=== PATIENT | female | born 1985 | race American Indian/Alaskan Native ===

== ENCOUNTER 2019-11-09 19:40 | Inpatient (IN) | payer MEDICAID ==
--- NOTE | 2019-11-09 20:25 | Event Note ---
ED Screening Note Date of service: 11/09/19 Time: 20:23 ED Screening Note: Pt complains of bilateral lower chest pain and vomiting x today ESRD on dialysis-M/W/F-states compliant does make urine pain radiates to left flank-+CVA tenderness on exam denies dysuria or hematuria or SOB This initial assessment/diagnostic orders/clinical plan/treatment(s) is/are subject to change based on patients health status, clinical progression and re- assessment by fellow clinical providers in the ED. Further treatment and workup at subsequent clinical providers discretion. Patient/guardian urged not to elope from the ED as their condition may be serious if not clinically assessed and managed. Initial orders include: labs CXR
[2019-11-09 21:12] LABS: Basophils # (Auto) 0.1 K/mm3 (0.0-0.1); Eosinophils # (Auto) 0.2 K/mm3 (0.0-0.4); Eosinophils % (Auto) 2.7 % (0.0-4.3); Hematocrit 38.1 % (30.3-42.9); Hemoglobin 12.4 gm/dl (10.1-14.3); Mean Corpuscular HGB Conc 32 % (30-34); Mean Corpuscular Volume 94 fl (79-97); Monocytes # (Auto) 0.6 K/mm3 (0.0-0.8); Monocytes % (Auto) 8.4 % (0.0-7.3); Platelet Count 343 K/mm3 (140-440); Red Blood Count 4.04 M/mm3 (3.65-5.03); Red Cell Distribution Width 19.7 % (13.2-15.2)
[2019-11-09 21:28] LABS: Albumin 5.3 g/dL (3.9-5); Calcium 9.9 mg/dL (8.4-10.2)
--- NOTE | 2019-11-09 21:33 | Emergency Department Report ---
ED Chest Pain HPI - General Chief Complaint: Chest Pain Stated Complaint: BODY PAIN Time Seen by Provider: 11/09/19 20:19 Source: EMS Mode of arrival: Ambulatory Limitations: No Limitations - History of Present Illness Initial Comments: Patient is a 34-year-old female that presents emergency room for chest and back pain. Patient states her chest pain is a 10 out of 10. Pain states her chest pain is better with rest and worse with exertion. Patient states that her blood pressure is high because she has missed some blood pressure medication. Patient states she is on dialysis and her last dialysis was yesterday. Patient states that her chest pains been going on for 1 day. Patient also complains of back pain. Patient states she is having left flank pain. Patient states it is worse with movement and better with rest. Patient states her back pain is also worse with palpation. Patient states her flank pain is a 10 out of 10. Patient is describes the pain as a stabbing. Patient states she does create urine. Patient denies fever and chills. Patient denies shortness of breath. MD Complaint: chest pain -: Sudden Onset: during rest Pain Location: left chest Severity: severe Severity scale (0 -10): 10 Consistency: constant Improves With: rest Worsens With: exertion re: denies: nausea, vomting, diaphoresis, dyspnea, sense of impending doom Other Symptoms: denies: cough, fever, syncope, rash, acid taste in mouth, leg swelling, palpitations, burping Treatments Prior to Arrival: aspirin Aspirin use within the Past 7 Days: (1) Yes - Related Data On Oral Contraceptives: No Home Medications Medication Instructions Recorded Confirmed Last Taken Clonidine HCl [Catapres] 0.3 mg PO Q12H 09/19/18 09/19/18 09/19/18 NIFEdipine [Nifedipine ER] 30 mg PO QDAY 09/19/18 09/19/18 09/19/18 hydrALAZINE [Apresoline] 75 mg PO Q8HR 09/19/18 09/19/18 09/19/18 Previous Rx's Medication Instructions Recorded Last Taken Type Isosorbide Dinitrate [Isordil 40 mg PO Q8H #90 tablet 09/23/18 Unknown Rx Titradose] NIFEdipine [Adalat cc] 30 mg PO Q8H #90 tablet.er 09/23/18 Unknown Rx NIFEdipine [Nifedipine ER] 90 mg PO QDAY #30 tablet.er 09/23/18 Unknown Rx Oxycodone HCl/Acetaminophen 1 each PO Q6HR PRN #20 tablet 09/23/18 Unknown Rx [Percocet 7.5/325 mg] carvediloL [Coreg] 25 mg PO Q12H #60 tablet 09/23/18 Unknown Rx cloNIDine [Catapres] 0.3 mg PO Q8HR #90 tablet 09/23/18 Unknown Rx lisinopriL [Zestril TAB] 40 mg PO QDAY #30 tablet 09/23/18 Unknown Rx Allergies Allergy/AdvReac Type Severity Reaction Status Date / Time tramadol AdvReac Unknown Verified 09/19/18 08:46 Heart Score - HEART Score History: Moderately suspicious EKG: Non-specific Age: < 45 Risk factors: > 3 risk factors or hx of atherosclerotic disease Troponin: 1-3x normal limit HEART Score: 5 ED Review of Systems ROS: Stated complaint: BODY PAIN Other details as noted in HPI Constitutional: denies: chills, fever Eyes: denies: eye pain, eye discharge, vision change ENT: denies: ear pain, throat pain Respiratory: denies: cough, shortness of breath, wheezing Cardiovascular: chest pain. denies: palpitations Endocrine: no symptoms reported Gastrointestinal: abdominal pain. denies: nausea, diarrhea Genitourinary: denies: urgency, dysuria, discharge Musculoskeletal: denies: back pain, joint swelling, arthralgia Skin: denies: rash, lesions Neurological: denies: headache, weakness, paresthesias Psychiatric: denies: anxiety, depression Hematological/Lymphatic: denies: easy bleeding, easy bruising ED Past Medical Hx - Past Medical History Previous Medical History?: Yes Hx Hypertension: Yes Hx Congestive Heart Failure: Yes Hx Renal Disease: Yes (on hd) Additional medical history: Dialysis - Surgical History Past Surgical History?: Yes Additional Surgical History: hd shunt - Social History Smoking Status: Current Every Day Smoker Substance Use Type: None - Medications Home Medications: Home Medications Medication Instructions Recorded Confirmed Last Taken Type Clonidine HCl [Catapres] 0.3 mg PO Q12H 09/19/18 09/19/18 09/19/18 History NIFEdipine [Nifedipine ER] 30 mg PO QDAY 09/19/18 09/19/18 09/19/18 History hydrALAZINE [Apresoline] 75 mg PO Q8HR 09/19/18 09/19/18 09/19/18 History Isosorbide Dinitrate [Isordil 40 mg PO Q8H #90 tablet 09/23/18 Unknown Rx Titradose] NIFEdipine [Adalat cc] 30 mg PO Q8H #90 tablet.er 09/23/18 Unknown Rx NIFEdipine [Nifedipine ER] 90 mg PO QDAY #30 tablet.er 09/23/18 Unknown Rx Oxycodone HCl/Acetaminophen 1 each PO Q6HR PRN #20 tablet 09/23/18 Unknown Rx [Percocet 7.5/325 mg] carvediloL [Coreg] 25 mg PO Q12H #60 tablet 09/23/18 Unknown Rx cloNIDine [Catapres] 0.3 mg PO Q8HR #90 tablet 09/23/18 Unknown Rx lisinopriL [Zestril TAB] 40 mg PO QDAY #30 tablet 09/23/18 Unknown Rx ED Physical Exam - General Limitations: No Limitations General appearance: alert, in no apparent distress - Head Head exam: Present: atraumatic, normocephalic - Eye Eye exam: Present: normal appearance - ENT ENT exam: Present: mucous membranes moist - Neck Neck exam: Present: normal inspection - Respiratory Respiratory exam: Present: normal lung sounds bilaterally. Absent: respiratory distress - Cardiovascular Cardiovascular Exam: Present: regular rate, normal rhythm. Absent: systolic murmur, diastolic murmur, rubs, gallop - GI/Abdominal GI/Abdominal exam: Present: soft, tenderness (Left flank tenderness.), normal bowel sounds - Extremities Exam Extremities exam: Present: normal inspection - Back Exam Back exam: Present: normal inspection - Neurological Exam Neurological exam: Present: alert, oriented X3 - Psychiatric Psychiatric exam: Present: normal affect, normal mood - Skin Skin exam: Present: warm, dry, intact, normal color. Absent: rash ED Course Vital Signs 11/09/19 11/09/19 11/09/19 20:01 20:20 21:40 Temperature 98.2 F 98.2 F Pulse Rate 87 87 Respiratory 18 20 22 Rate Blood Pressure 214/153 Blood Pressure 236/158 [Right] O2 Sat by Pulse 100 98 Oximetry 11/09/19 11/10/19 11/10/19 23:36 00:00 01:03 Temperature Pulse Rate Respiratory Rate Blood Pressure 225/153 195/120 206/144 Blood Pressure [Right] O2 Sat by Pulse 54 L 99 95 Oximetry 11/10/19 11/10/19 11/10/19 01:30 02:00 02:30 Temperature Pulse Rate Respiratory Rate Blood Pressure 208/151 185/109 184/112 Blood Pressure [Right] O2 Sat by Pulse 98 98 98 Oximetry - Reevaluation(s) Reevaluation #1: Initial evaluation done. Patient found to be hypotensive. Patient will be c onnected to bus driver/monitor and blood pressure recheck. Patient will be given pain medications. 11/09/19 20:20 Reevaluation #2: I discussed all results with patient. I discussed plan of care with patient. Patient agrees with plan of care and admission. Patient to be admitted to the hospitalist service. Patient complaining of pain. Patient will be given more pain medication. Patient's blood pressure also still elevated and patient was given clonidine. 11/10/19 02:41 - Consultations Consultation #1: Hospitalist consulted for admission. Hospitalist to admit patient. Bridge orders placed. 11/10/19 02:41 TANVI score - Tanvi Score Age > 65: (0) No Aspirin use within the Past 7 Days: (1) Yes 3 or more CAD Risk Factors: (1) Yes 2 or more Angina events in past 24 hrs: (1) Yes Known CAD with more than 50% Stenosis: (0) No Elevated Cardiac Markers: (0) No ST Deviation Greater than 0.5mm: (0) No TANVI Score: 3 ED Medical Decision Making - Lab Data Result diagrams: 11/09/19 20:27 11/09/19 20:27 - EKG Data -: EKG Interpreted by [facility] EKG shows normal: sinus rhythm, axis, intervals, QRS complexes, ST-T waves Rate: normal - EKG Data Interpretation: [facility] - Radiology Data Radiology results: report reviewed CHEST 2 VIEWS INDICATION / CLINICAL INFORMATION: Chest Pain. COMPARISON: 09/19/2018 FINDINGS: SUPPORT DEVICES: None. HEART / MEDIASTINUM: No significant abnormality. LUNGS / PLEURA: No significant pulmonary or pleural abnormality. .No pneumothorax. ADDITIONAL FINDINGS: Nipple shadows are noted bilaterally IMPRESSION: 1. No acute findings. CT abdomen pelvis wo con INDICATION: FLANK PAIN. TECHNIQUE: All CT scans at this location are performed using the following dose modulation technique: Automated exposure control. Helical slices were obtained through the abdomen and pelvis. No contrast is administered. COMPARISON: None available. FINDINGS: Abdomen: There is focal airspace opacity in the right lung base likely representing atelectasis. The heart is mildly enlarged. The liver, spleen, pancreas, adrenal glands, and small bowel show no acute abnormalities. The kidneys are small. No adenopathy is seen. The aorta is normal in diameter. Atherosclerotic calcifications are noted in the aorta and common iliac arteries. There is ectasia of the common iliac arteries. Moderate to large amount of stool is noted in the colon raising possibility of constipation. The appendix is unremarkable. There is no obstruction, inflammation, or free air. Pelvis: Vascular calcifications are noted. There is no obstruction or inflammation. There are no abnormal collections. On review of bone windows, no acute osseous abnormalities are seen. IMPRESSION: 1. There is no obstruction, inflammation, or free air. There are no abnormal fluid collections. The appendix is unremarkable. No renal or ureteral calculi are identified. There is no hydronephrosis. Kidneys are small. There is possible constipation. - Medical Decision Making Patient is a 34-year-old female that presents emergency room complaints of left flank pain and chest pain. Patient's had an abdominal CT for her CVA tenderness and flank pain. Abdominal CT shows no acute findings. Patient also complains of chest pain. Patient has a history of end-stage renal disease and her initial troponin was elevated. Patient second troponin increased even more and patient required admission. Patient will be admitted to the hospital service for further evaluation treatment. The rest of the patient's labs are essentially unremarkable. Patient required multiple medications for her blood pressure and pain. - Differential Diagnosis Flank pain, abdominal pain, chest pain, ACS, ESRD Critical Care Time: Yes Critical care time in (mins) excluding proc time.: 35 Critical care attestation.: If time is entered above; I have spent that time in minutes in the direct care of this critically ill patient, excluding procedure time. Critical Care Time: 35 minutes ED Disposition Clinical Impression: Malignant hypertension, Flank pain, acute, CKD (chronic kidney disease) stage V requiring chronic dialysis, Elevated troponin I level Chest pain Qualifiers: Chest pain type: unspecified Qualified Code(s): R07.9 - Chest pain, unspecified Disposition: OP ADMIT IP TO THIS HOSP Is pt being admited?: Yes Does the pt Need Aspirin: No Condition: Critical Referrals: PRIMARY CARE, [Primary Care Provider] - 3-5 Days Time of Disposition: 02:44
[2019-11-09] MEDS ORDERED: HYDROmorphone 1 MG/1 ML INJ ONE (23:13)
[2019-11-09] MEDS ORDERED: HYDROmorphone 1 MG/1 ML INJ IV ONE (23:20)
[2019-11-09 23:42] LABS: Chol/HDL Ratio 2.32 %
[2019-11-09] MEDS ORDERED: diphenhydrAMINE 50 MG/ML VIAL IV ONE (23:53)
[2019-11-10] MEDS ORDERED: hydrALAZINE 20 MG/1 ML INJ ONE (01:25)
[2019-11-10] MEDS ORDERED: hydrALAZINE 20 MG/1 ML INJ IV ONE (01:35)
--- NOTE | 2019-11-10 01:39 | XRay Report ---
CHEST 2 VIEWS INDICATION / CLINICAL INFORMATION: Chest Pain. COMPARISON: 09/19/2018 FINDINGS: SUPPORT DEVICES: None. HEART / MEDIASTINUM: No significant abnormality. LUNGS / PLEURA: No significant pulmonary or pleural abnormality. .No pneumothorax. ADDITIONAL FINDINGS: Nipple shadows are noted bilaterally IMPRESSION: 1. No acute findings. Signer Name: Edwin Fermin MD Signed: 11/10/2019 1:34 AM Workstation Name: [id number]
--- NOTE | 2019-11-10 02:08 | Cat Scan Report ---
CT abdomen pelvis wo con INDICATION: FLANK PAIN. TECHNIQUE: All CT scans at this location are performed using the following dose modulation technique: Automated exposure control. Helical slices were obtained through the abdomen and pelvis. No contrast is adminis tered. COMPARISON: None available. FINDINGS: Abdomen: There is focal airspace opacity in the right lung base likely representing atelectasis. The heart is mildly enlarged. The liver, spleen, pancreas, adrenal glands, and small bowel show no acute abnormalities. The kidneys are small. No adenopathy is seen. The aorta is normal in diameter. Atherosclerotic calcifications ar e noted in the aorta and common iliac arteries. There is ectasia of the common iliac arteries. Moderate to large amount of stool is noted in the colon raising possibility of constipation. The appe ndix is unremarkable. There is no obstruction, inflammation, or free air. Pelvis: Vascular calcifications are noted. There is no obstruction or inflammation. There are no abno rmal collections. On review of bone windows, no acute osseous abnormalities are seen. IMPRESSION: 1. There is no obstruction, inflammation, or free air. There are no abnormal fluid collections. The a ppendix is unremarkable. No renal or ureteral calculi are identified. There is no hydronephrosis. Kidneys are small. There is possible constipation. Signer Name: Edwin Fermin MD Signed: 11/10/2019 2:04 AM Workstation Name: [id number]
[2019-11-10] MEDS ORDERED: cloNIDine 0.2 MG TAB PO ONE (02:46)
[2019-11-10] MEDS ORDERED: HYDROmorphone 1 MG/1 ML INJ IV ONE (02:54)
[2019-11-10] MEDS ORDERED: NITROGLYCERIN 0.4 MG TAB SUBL SL PRN (03:37)
[2019-11-10] MEDS ORDERED: ACETAMINOPHEN 325 MG TAB PO PRN (03:38)
[2019-11-10] MEDS ORDERED: hydrALAZINE 20 MG/1 ML INJ IV PRN (03:39)
[2019-11-10 04:41] LABS: Creatine Kinase MB 2.1 ng/mL (0.0-4.0)
[2019-11-10] MEDS: HEPARIN 5,000 UNIT/1 ML VIAL SUB-Q SCH ×3 (05:54→21:07)
--- NOTE | 2019-11-10 07:09 | History and Physical Report ---
CHIEF COMPLAINT: Chest pain. OTHER COMPLAINT: Include bilateral flank pain. HISTORY OF PRESENTING ILLNESS: The patient is a 34-year-old female who says she has been having chest pain going on for a few days. Also, the patient complained about pain in both flank areas, radiating to the back. Pain is worse with exertion and better with rest. There is no history of shortness of breath, no history of nausea and vomiting. Also, the patient denied history of fever or chills or cough, and described the chest pain as sharp pain. The patient is on dialysis for end-stage renal disease and had last dialysis on 11/08/2019. PAST MEDICAL HISTORY: Pertinent for hypertension, congestive heart failure; end-stage renal disease, on dialysis. PAST SURGICAL HISTORY: Pertinent for dialysis shunt placement. FAMILY HISTORY: There is no family history of coronary artery disease. SOCIAL HISTORY: The patient smokes cigarettes; does not drink alcohol and does not use illicit drugs. MEDICATIONS: The patient is on clonidine 0.3 mg by mouth every 12 hours, nifedipine 30 mg by mouth daily, Apresoline 75 mg by mouth every 8 hours and isosorbide dinitrate 40 mg by mouth every 8 hours, Adalat 30 mg by mouth every 8 hours. The patient is also on Percocet 7.5 mg/325 one by mouth every 6 hours and Coreg 25 mg by mouth every 12 hours. The patient is on clonidine 0.3 mg by mouth every 8 hours and on lisinopril 40 mg by mouth daily. ALLERGIES: THE PATIENT IS ALLERGIC TO TRAMADOL. REVIEW OF SYSTEMS: CONSTITUTIONAL: There is no fever, no chills, no diaphoresis. HEENT: There is no headache or sore throat. CARDIOVASCULAR SYSTEM: Chest pain is present. No orthopnea. RESPIRATORY SYSTEM: There is no shortness of breath or cough. GASTROINTESTINAL SYSTEM: There is no nausea, no vomiting, no abdominal pain, diarrhea or constipation. NEUROLOGICAL SYSTEM: There is no numbness, no dizziness, no altered mental status. MUSCULOSKELETAL SYSTEM: There is pain in both lateral chest wall areas. There is no joint swelling. DERMATOLOGICAL SYSTEM: There is no skin rash or itching. GENITOURINARY SYSTEM: There is dysuria, but no hematuria or flank pain. Rest of system review is normal. PHYSICAL EXAMINATION: GENERAL: At the time of exam, the patient was found to be alert, oriented x3 and not in acute distress. VITAL SIGNS: At the initial time of presentation showed temperature of 98.2 degrees Fahrenheit, pulse of 87, respirations 18, blood pressure initially was 236/158, O2 sat of 100% on room air. The patient's blood pressure later came down with treatment to 184/112 and the patient's O2 sat was 100% on room air. HEENT: Showed pupils to be equal, round, reactive to light and accommodation. Extraocular muscles are intact. NECK: Supple with no JVD or carotid bruit. CARDIOVASCULAR SYSTEM: Showed normal first and second heart sounds with no gallops or murmurs. RESPIRATORY SYSTEM: Showed good air entry on both sides of the lungs with no abnormal breath sounds. GASTROINTESTINAL SYSTEM: Showed abdomen to be full, soft, nontender with no organomegaly or rigidity. NEUROLOGIC: Shows no focal deficit. MUSCULOSKELETAL SYSTEM: Showed no joint swelling or tenderness. DERMATOLOGICAL SYSTEM: Showed no skin rash. GENITOURINARY SYSTEM: Showing no costovertebral angle tenderness. PERTINENT LABORATORY DATA: The patient had CBC done that came back unremarkable. The patient's chemistry show elevated BUN of 36 with high creatinine of 8.1, with the patient's cardiac enzymes showing high troponin level of 0.037 initially. Also, the patient's total protein was high with a value of 9.3 and albumin level is high with a value of 5.3. IMAGING STUDIES: The patient had CT of the abdomen and pelvis without contrast done that showed there is no obstruction, inflammation or free air. There is no abnormal fluid collection with the appendix being unremarkable. Also, the patient had a chest x-ray done that shows no acute findings. DIAGNOSES: 1. Chest pain. 2. Hypertensive crisis. PLAN OF CARE: 1. The patient will be placed on telemetry, on chest pain observation pathway. 2. The patient will have cardiac enzymes checked q. 6 hours x 2 more levels, and we will involve troponin, total CK and CK-MB. 3. The patient will be on aspirin 325 mg by mouth daily. 4. The patient will be on nitro paste half-inch to the anterior chest wall q.i.d. and also will be on Nitrostat 0.4 mg sublingual q. 5 minutes. 5. The patient will be on IV morphine 2 mg every 3 hours as needed for pain, and will be on IV Zofran 4 mg every 8 hours as needed for nausea and vomiting. 6. The patient will be on Tylenol 650 mg by mouth every 4 hours as needed for fever and headache. 7. The patient will be on hydralazine 10 mg IV every 4 hours for blood pressure of 150/90 or greater. 8. The patient will have Cardiology consult with Dr. Munguia because of chest pain with elevated troponin level. 9. The patient will be on subcutaneous heparin 5000 units q. 12 hours for DVT prophylaxis. 10. The patient will be on oxygen by nasal cannula at the rate of 2 liters per minute. JOB# [id number] OCN/NTS
[2019-11-10] MEDS ORDERED: MORPHINE 2 MG/1 ML INJ ONE (08:06)
[2019-11-10] MEDS: MORPHINE 2 MG/1 ML INJ IV PRN ×4 (08:07→21:13)
[2019-11-10 08:32] LABS: Creatine Kinase MB 2.1 ng/mL (0.0-4.0)
--- NOTE | 2019-11-10 09:23 | Event Note ---
Date: 11/10/19 changed patient to inpatient status as she is requiring multiple doses of iv hydralazine to control bp and still not controlled
[2019-11-10] MEDS: NITROGLYCERIN 2% OINT 1 GM TP SCH ×5 (09:30→19:26)
[2019-11-10] MEDS: ASPIRIN 325 MG TAB PO SCH (09:35)
--- NOTE | 2019-11-10 11:01 | Consultation ---
History of Present Illness - Reason for Consult Consult date: 11/10/19 end stage renal disease - History of Present Illness This is a 34 year old female patient with pmh significant for HTN, CHF, and ESRD. She is currently on outpatient dialysis schedule of // at [facility] on [address] and has a left arm shunt for access. Patient is answering very few questions and states she just wants to sleep. History is being obtained primarily from ED notes. She presented to the ED on 11/09 for chest and back pain that improves with rest. Her last outpatient dialysis treatment was on 11/08. She is not compliant with her blood pressure medications and was found to be severely hypertensive in the ED. 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 She denies shortness of breath, nausea, vomiting, diarrhea, abdominal pain, rash, fevers, or chills. Labs on admission and at time of consultation significant for creatinine 8.1, troponin 0.037, and albumin 5.3. Her abdomen/pelvis CT was unremarkable and revealed small kidneys which is an expected finding in chronic kidney disease. Nephrology was consulted for further evaluation and treatment of end stage renal disease. Past History Past Medical History: ESRD, heart failure, hypertension Medications and Allergies Allergies Allergy/AdvReac Type Severity Reaction Status Date / Time tramadol AdvReac Unknown Verified 09/19/18 08:46 Home Medications Medication Instructions Recorded Confirmed Last Taken Type Clonidine HCl [Catapres] 0.3 mg PO Q12H 09/19/18 11/10/19 09/19/18 History NIFEdipine [Nifedipine ER] 30 mg PO QDAY 09/19/18 11/10/19 09/19/18 History hydrALAZINE [Apresoline] 75 mg PO Q8HR 09/19/18 11/10/19 09/19/18 History Isosorbide Dinitrate [Isordil 40 mg PO Q8H #90 tablet 09/23/18 11/10/19 Unknown Rx Titradose] NIFEdipine [Adalat cc] 30 mg PO Q8H #90 tablet.er 09/23/18 11/10/19 Unknown Rx NIFEdipine [Nifedipine ER] 90 mg PO QDAY #30 tablet.er 09/23/18 11/10/19 Unknown Rx Oxycodone HCl/Acetaminophen 1 each PO Q6HR PRN #20 tablet 09/23/18 11/10/19 Unknown Rx [Percocet 7.5/325 mg] carvediloL [Coreg] 25 mg PO Q12H #60 tablet 09/23/18 11/10/19 Unknown Rx cloNIDine [Catapres] 0.3 mg PO Q8HR #90 tablet 09/23/18 11/10/19 Unknown Rx lisinopriL [Zestril TAB] 40 mg PO QDAY #30 tablet 09/23/18 11/10/19 Unknown Rx Active Meds: Active Medications Acetaminophen (Tylenol) 650 mg PO Q4H PRN PRN Reason: Headache Aspirin (Aspirin) 325 mg PO QDAY [facility] Last Admin: 11/10/19 09:35 Dose: Not Given Documented by: Heparin Sodium (Porcine) (Heparin) 5,000 unit SUB-Q Q12HR [facility] Last Admin: 11/10/19 08:59 Dose: Not Given Documented by: Hydralazine HCl (Apresoline) 10 mg IV Q4H PRN PRN Reason: Blood Pressure Last Admin: 11/10/19 08:52 Dose: 10 mg Documented by: Morphine Sulfate (Morphine) 2 mg IV Q3H PRN PRN Reason: Pain, Moderate (4-6) Last Admin: 11/10/19 08:07 Dose: 2 mg Documented by: Nitroglycerin (Nitro-Bid 2%) 0.5 inch TP QIDNTG [facility]; Protocol Last Admin: 11/10/19 09:35 Dose: Not Given Documented by: Nitroglycerin (Nitrostat) 0.4 mg SL .Q5MIN PRN PRN Reason: Chest Pain Ondansetron HCl (Zofran) 4 mg IV Q8H PRN PRN Reason: Nausea And Vomiting Review of Systems Constitutional: no weight loss, no weight gain, no fever, no chills Ears, nose, mouth and throat: no nasal discharge, no epistaxis Cardiovascular: chest pain, high blood pressure, no lightheadedness, no shortness of breath Respiratory: no cough, no shortness of breath Gastrointestinal: no abdominal pain, no nausea, no vomiting, no diarrhea Musculoskeletal: other (back pain) Integumentary: no rash, no pruritis, no sores Neurological: no head injury, no weakness Exam - Vital Signs Vital signs: Vital Signs Temp Pulse Resp BP Pulse Ox 98.2 F 87 18 236/158 100 11/09/19 20:11/09/19 20:11/09/19 20:11/09/19 20:11/09/19 20:01 - General Appearance General appearance: well-developed, well-nourished, appears stated age EENT: ATNC, PERRL, mucous membranes moist Neck: Present: neck supple, trachea midline Respiratory: Clear to Ascultation, Normal Exam Heart: regular, normal heart rate, S1S2, no murmurs Gastrointestinal: Present: normal, normoactive bowel sounds, tenderness (left flank). Absent: distended, masses Integumentary: no rash, warm and dry Neurologic: no focal deficit, alert and oriented x3, strength 5/5 Musculoskeletal: Present: other (FROM all extremities) Psychiatric: agitated Results - Lab Results 11/09/19 20:27 11/09/19 20: Most recent lab results Calcium 9.9 mg/dL (8.4-10.2) 11/09/19 20:27 Assessment and Plan 1. End stage renal disease: Currently on M//F schedule at [facility] on [address]. Last outpatient HD 11/08. History of noncompliance with HD treatments. Will need HD tomorrow, 11/11 if she is not discharged. Monitor renal function. Avoid nephrotoxic agents. Meds dosage based on GFR. 2. FEN: Monitor lytes. 3. Hypertensive urgency: Noncompliant with medications. 80 mg Lasix IV x 1 ordered. Monitor BP closely. 4. Chest pain w/ elevated troponin: Cards consulted. 5. Flank pain: CT abd/pelvis unremarkable.
[2019-11-10] MEDS ORDERED: NON-FORMULARY EACH (Oxycodone Hcl/Acetaminophen [Percocet 7.5/325 Mg] 1 EACH) PO PRN (12:12)
[2019-11-10] MEDS ORDERED: NON-FORMULARY EACH (Nifedipine [Nifedipine Er] 30 MG) PO SCH (12:15)
--- NOTE | 2019-11-10 12:15 | Event Note ---
Date: 11/10/19 Cardiac evaluation dictated. 1. Chest pain atypical associated with local chest wall tenderness which reproduces the pain. Pain is most likely musculoskeletal. 2. Severe uncontrolled hypertension/ medication noncompliance Discussed with Dr. Dooley will adjust the medications to improve the blood pressure and will monitor this closely. 3. Systolic murmur - #4 chronic renal failure on dialysis will obtain echo for further evaluation. #5 Abnormal troponins probably secondary to chronic renal failure Thank you Dr. Puri for me to participate in the care of this pleasant young lady. Dr. ESTEBAN Yin
[2019-11-10] MEDS ORDERED: FUROSEMIDE 100 MG/10 ML INJ IV ONE (12:17)
[2019-11-10] MEDS ORDERED: POLYETHYLENE GLYCOL 3350 17 GM POWDER PO PRN (12:23)
--- NOTE | 2019-11-10 12:24 | Progress Note ---
Assessment and Plan Assessment and plan: Patient is a 34 yo AA woman with a history of ESRD on HD MWF, tobacco dependency, hypertension and CHF who prsented to [facility] ED with chest and back pains. BP on triage was 236/158. She was given oral 0.2 mg Clonidine, 20 mg iv hydralazine and then another 10mg IV hydralazine x 1 * CT abd/pelvis without contrast IMPRESSION: 1. There is no obstruction, inflammation, or free air. There are no abnormal fluid collections. The appendix is unremarkable. No renal or ureteral calculi are identified. There is no hydronephrosis. Kidneys are small. There is possible constipation. * 2v CXR IMPRESSION: 1. No acute findings. 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 Follow-up on current diagnosis chest pains. Overnight uneventful as no events directly reported to me. Imaging, nursing note, chart, labs and old chart reviewed. Patient was very rude to me. I extended my hand for introduction and she refused to shake my hand. She refused questions. Hospitalist Physical - Physical exam Narrative exam: Gen: thin frial NAD, Awake, Alert, Orientated HEENT: NCAT, EOMI, PERRL, OP Clear Neck: supple, no adenopathy, no thyromegaly, no JVD CVS/Heart: RRR, normal S1S2, pulses present bilaterally Chest/Lungs: CTA B, Symmetrical chest expansion, good air entry bilaterally GI/Abdomen: soft, NTND, good bowel sounds, no guarding or rebound /Bladder: no suprapubic tenderness, no CVA or paraspinal tenderness Extermity/Skin: no c/c/e, no obvious rash MSK: FROM x 4 Neuro: CN 2-12 grossly intact, no new focal deficits Psych: calm - Constitutional Vitals: Temp Pulse Resp BP Pulse Ox 97.8 F 80 18 207/137 95 11/10/19 08:34 11/10/19 09:33 11/10/19 08:34 11/10/19 09:33 11/10/19 11:54 TANVI score - Tanvi Score Age > 65: (0) No Aspirin use within the Past 7 Days: (1) Yes 3 or more CAD Risk Factors: (1) Yes 2 or more Angina events in past 24 hrs: (1) Yes Known CAD with more than 50% Stenosis: (0) No Elevated Cardiac Markers: (0) No ST Deviation Greater than 0.5mm: (0) No TANVI Score: 3 Results - Labs CBC & Chem 7: 11/09/19 20:27 11/09/19 20: Labs: Laboratory Last Values WBC 7.5 K/mm3 (4.5-11.0) 11/09/19: RBC 4.04 M/mm3 (3.65-5.03) 11/09/19 20: Hgb 12.4 gm/dl (10.1-14.3) 11/09/19 Hct 38.1 % (30.3-42.9) 11/09/19: MCV 94 fl (79-97) 11/09/19 20: MCH 31 pg (28-32) 11/09/19 MCHC 32 % (30-34) 11/09/19 RDW 19.7 % (13.2-15.2) H 11/09/19 20: Plt Count 343 K/mm3 (140-440) 11/09/19 20: Lymph % (Auto) 14.0 % (13.4-35.0) 11/09/19 20: Eddy % (Auto) 8.4 % (0.0-7.3) H 11/09/19 20: Eos % (Auto) 2.7 % (0.0-4.3) 11/09/19 20: Baso % (Auto) 1.0 % (0.0-1.8) 11/09/19 20: Lymph # 1.0 K/mm3 (1.2-5.4) L 11/09/19 20: Eddy # 0.6 K/mm3 (0.0-0.8) 11/09/19 20:27 Eos # 0.2 K/mm3 (0.0-0.4) 11/09/19 20: Baso # 0.1 K/mm3 (0.0-0.1) 11/09/19 20: Seg Neutrophils % 73.9 % (40.0-70.0) H 11/09/19 20: Seg Neutrophils # 5.5 K/mm3 (1.8-7.7) 11/09/19 20: Sodium 140 mmol/L (137-145) 11/09/19 20: Potassium 4.8 mmol/L (3.6-5.0) 11/09/19 20: Chloride 91.4 mmol/L (98-107) L 11/09/19: Carbon Dioxide 24 mmol/L (22-30) 11/09/19 20: Anion Gap 29 mmol/L 11/09/19 20: BUN 36 mg/dL (7-17) H 11/09/19 20: Creatinine 8.1 mg/dL (0.7-1.2) H 11/09/19 20: Estimated GFR 7 ml/min 11/09/19 20: BUN/Creatinine Ratio 4 % 11/09/19: Glucose 92 mg/dL (65-100) 11/09/19: Calcium 9.9 mg/dL (8.4-10.2) 11/09/19 20: Total Bilirubin 0.40 mg/dL (0.1-1.2) 11/09/19 20: AST 16 units/L (5-40) 11/09/19 20: ALT 11 units/L (7-56) 11/09/19 20: Alkaline Phosphatase 87 units/L (35-129) 11/09/19 20: Total Creatine Kinase 183 units/L (30-135) H 11/10/19 07:15 CK-MB (CK-2) 2.1 ng/mL (0.0-4.0) 11/10/19 07:15 CK-MB (CK-2) Rel Index 1.1 (0-4) 11/10/19 07:15 Troponin T 0.033 ng/mL (0.00-0.029) H D 11/10/19 07:15 Total Protein 9.3 g/dL (6.3-8.2) H 11/09/19 20:27 Albumin 5.3 g/dL (3.9-5) H 11/09/19 20: Albumin/Globulin Ratio 1.3 % 11/09/19 20:27 Triglycerides 167 mg/dL (2-149) H 11/09/19 20:27 Cholesterol 174 mg/dL (50-199) 11/09/19 20:27 LDL Cholesterol Direct 82 mg/dL (50-130) 11/09/19 20:27 HDL Cholesterol 75 mg/dL (40-59) H 11/09/19 20:27 Cholesterol/HDL Ratio 2.32 % 11/09/19 20: Lipase 32 units/L (13-60) 11/09/19 20: HCG, Qual Negative (Negative) 11/09/19 23:35 Active Medications - Current Medications Current Medications: Generic Name Dose Route Start Last Admin Trade Name Freq PRN Reason Stop Dose Admin Acetaminophen 650 mg 11/10/19 03:38 Tylenol PO Q4H PRN Headache Aspirin 325 mg 11/10/19 10:00 11/10/19 09:35 Aspirin PO Not Given QDAY [facility] Carvedilol 25 mg 11/10/19 12:20 Coreg PO Q12H [facility] Clonidine HCl 0.3 mg 11/10/19 12:20 Catapres PO Q8HR [facility] Heparin Sodium (Porcine) 5,000 unit 11/10/19 03:45 11/10/19 08:59 Heparin SUB-Q Not Given Q12HR [facility] Hydralazine HCl 10 mg 11/10/19 03:39 11/10/19 08:52 Apresoline IV 10 mg Q4H PRN Administration Blood Pressure Hydralazine HCl 75 mg 11/10/19 12:20 Apresoline PO Q8HR [facility] Isosorbide Dinitrate 40 mg 11/10/19 13:00 Isordil Titradose PO Q8H [facility] Lisinopril 40 mg 11/10/19 13:00 Zestril PO QDAY [facility] Miscellaneous Medication 30 mg 11/10/19 12:15 Nifedipine [Nifedipine Er] PO QDAY [facility] Miscellaneous Medication 1 each 11/10/19 12:12 Oxycodone Hcl/Acetaminophen [Percocet 7.5/325 Mg] PO Q6HR PRN Pain , Severe (7-10) Morphine Sulfate 2 mg 11/10/19 03:36 11/10/19 11:56 Morphine IV 2 mg Q3H PRN Administration Pain, Moderate (4-6) Nitroglycerin 0.5 inch 11/10/19 06:00 11/10/19 09:35 Nitro-Bid 2% TP Not Given QIDNTG [facility] Protocol Nitroglycerin 0.4 mg 11/10/19 03:37 Nitrostat SL .Q5MIN PRN Chest Pain Ondansetron HCl 4 mg 11/10/19 03:38 Zofran IV Q8H PRN Nausea And Vomiting
[2019-11-10] MEDS ORDERED: oxyCODONE /ACETAMINOPHEN 5-325MG TAB PO PRN (12:32)
--- NOTE | 2019-11-10 14:40 | Consultation ---
CARDIOLOGY EVALUATION HISTORY OF PRESENT ILLNESS: The patient is a 34-year-old female that presents to the Emergency Room with chest and back pains. The pain is associated with chest wall tenderness, it is described in both lower rib cages. This is unrelated to any particular exertion. The patient is known to have longstanding hypertension and has not been compliant with medications. The patient is known to have renal failure and has been on dialysis. No previous myocardial infarction. No history of cardiac murmur or cardiac enlargement. She denies significant difficulty in breathing or fever. REVIEW OF SYSTEMS: HEAD, EYES, EARS, NOSE, THROAT: No symptoms. ENDOCRINE: No history of diabetes. RESPIRATORY: No significant difficulty in breathing or cough. GASTROINTESTINAL: The patient does complain about mild abdominal discomfort. No nausea or vomiting. GENITOURINARY: No symptoms. MUSCULOSKELETAL: Complains about some back pain intermittently. GENITOURINARY: No symptoms. CENTRAL NERVOUS SYSTEM: No symptoms. HEME/ONC: No symptoms. PHYSICAL EXAMINATION: GENERAL: Adult female, well built, well nourished, in no distress, but she does appear to be somewhat uncomfortable, particularly when she moves. VITAL SIGNS: Blood pressure is 207/137, pulse 80, respirations 18, afebrile. HEAD, EYES, EARS, NOSE AND THROAT: Unremarkable. NECK: Supple. No thyromegaly. Both carotids are palpable and equal. Neck veins are flat. CHEST: Symmetrical. LUNGS: Clear. HEART: S1 and S2 are heard well. No S3. Grade 2/6 systolic murmur is present. ABDOMEN: Soft, nontender, no hepatosplenomegaly. EXTREMITIES: No edema or calf tenderness. The patient does have lower chest wall tenderness on both sides which reproduces her pain. LABORATORY DATA: WBC 7.5, hemoglobin 12.4, hematocrit 38.1. Sodium 140, potassium 4.8, BUN 36, creatinine 8.1, blood sugar 92. Troponin 0.037 and 0.033. Total cholesterol 174, LDL 82, HDL 75. EKG, sinus rhythm, left ventricular hypertrophy with associated ST-T changes. IMPRESSION: 1. Chest pain, probably musculoskeletal. 2. Severe uncontrolled hypertension. 3. Chronic renal failure, on dialysis. The patient is seen for cardiac evaluation. Chest pain appears to be secondary to musculoskeletal pain. Her main issue appears to be uncontrolled hypertension. The patient is also known to have renal failure, on dialysis. Case discussed with Dr. Puri. The patient will be monitored and followed with you. Because of this presence of his systolic murmur, I will obtain an echocardiogram for further cardiac evaluation. Thank you, Dr. Puri for allowing me to participate in the care of this pleasant young lady. JOB# [id number] KB/NTS
[2019-11-10] MEDS: hydrALAZINE 25 MG TAB PO SCH ×3 (16:19→21:06)
[2019-11-10] MEDS: cloNIDine 0.2 MG TAB PO SCH ×3 (16:20→21:06)
[2019-11-10] MEDS: NIFEdipine XL 30 MG TAB PO SCH (16:33)
[2019-11-10] MEDS: ISOSORBIDE DINITRATE 20 MG TAB PO SCH ×2 (16:33→21:13)
[2019-11-10] MEDS: LISINOPRIL 40 MG TAB PO SCH (16:33)
[2019-11-10] MEDS: carvediloL 25 MG TAB PO SCH ×2 (16:37→16:40)
[2019-11-10] MEDS ORDERED: diphenhydrAMINE 50 MG CAP PO PRN (16:56)
[2019-11-10] MEDS: ONDANSETRON 4 MG/2 ML INJ IV PRN (18:08)
[2019-11-11] MEDS: carvediloL 25 MG TAB PO SCH ×2 (00:19→12:39)
[2019-11-11] MEDS: NITROGLYCERIN 2% OINT 1 GM TP SCH ×3 (05:18→15:58)
[2019-11-11] MEDS: cloNIDine 0.2 MG TAB PO SCH ×2 (05:18→15:55)
[2019-11-11] MEDS: ISOSORBIDE DINITRATE 20 MG TAB PO SCH ×2 (05:19→15:56)
[2019-11-11] MEDS: hydrALAZINE 25 MG TAB PO SCH ×2 (05:19→15:55)
[2019-11-11] MEDS: oxyCODONE 5 MG TAB PO PRN ×3 (05:48→17:11)
[2019-11-11] MEDS ORDERED: HEPARIN 10,000 UNITS/10 ML VIAL IV PRN ×2 (09:30)
[2019-11-11] MEDS ORDERED: SODIUM CHLORIDE 0.9% 100 ML IV PRN ×2 (09:30→09:33)
--- NOTE | 2019-11-11 10:16 | Discharge Summary ---
Providers - Providers Date of Admission: 11/10/19 09:22 Date of discharge: 11/11/19 Attending physician: BETSY GALVAN 11/10/19 06:00 Consult to Physician [CONS] Routine Comment: Consulting Provider: DANIEL HUERTAS Physician Instructions: Reason For Exam: CHEST PAIN WITH ELEVATED TROPONIN & ESRD 11/10/19 08:12 Consult to Physician [CONS] Routine Comment: Consulting Provider: AZRA PRUETT Physician Instructions: Reason For Exam: ESRD ON DIALYSIS Primary care physician: MELT HELPER Hospitalization Condition: Stable Hospital course: Patient is a 34 yo AA woman with a history of ESRD on HD MWF, tobacco dependency, hypertension and CHF who prsented to [facility] ED with chest and back pains. BP on triage was 236/158. She was given oral 0.2 mg Clonidine, 20 mg iv hydralazine and then another 10mg IV hydralazine x 1 * CT abd/pelvis without contrast IMPRESSION: 1. There is no obstruction, inflammation, or free air. There are no abnormal fluid collections. The appendix is unremarkable. No renal or ureteral calculi are identified. There is no hydronephrosis. Kidneys are small. There is possible constipation. * 2v CXR IMPRESSION: 1. No acute findings. 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 Constipation: Miralax DVT ppx sq heparin (she refused) Disposition: DC TO HOME OR SELFCARE Time spent for discharge: 35 minutes Core Measure Documentation - Palliative Care Palliative Care/ Comfort Measures: Not Applicable - Core Measures Any of the following diagnoses?: none - VTE Discharge Requirements Deep Vein Thrombosis/Pulmonary Embolism Present on Admission: No Has pt received <5 days of overlap therapy or INR<2.0: No Anticoagulant overlap therapy prescribed at discharge: No Contraindication No Overlap Therapy order at DC: Not Indicated Exam - Physical Exam Narrative exam: Gen: thin frial NAD, Awake, Alert, Orientated HEENT: NCAT, EOMI, PERRL, OP Clear Neck: supple, no adenopathy, no thyromegaly, no JVD CVS/Heart: RRR, normal S1S2, pulses present bilaterally Chest/Lungs: CTA B, Symmetrical chest expansion, good air entry bilaterally, reproducible cw tenderness GI/Abdomen: soft, NTND, good bowel sounds, no guarding or rebound /Bladder: no suprapubic tenderness, no CVA or paraspinal tenderness Extermity/Skin: no c/c/e, no obvious rash MSK: FROM x 4 Neuro: CN 2-12 grossly intact, no new focal deficits Psych: calm - Constitutional Vitals: Temp Pulse Resp BP Pulse Ox 98.4 F 67 20 130/61 93 11/11/19 03:58 11/11/19 03:58 11/11/19 03:58 11/11/19 03:58 11/11/19 09:48 Plan Activity: other (no strenous activity unless cleared by Traffic Technician) Diet: renal Special Instructions: record daily BP diary Follow up with: PRIMARY CAREMD [Primary Care Provider] - 3-5 Days DANIEL HUERTAS MD [Staff Physician] - 7 Days AZRA PRUETT MD [Staff Physician] - 7 Days Prescriptions: hydrALAZINE [Apresoline TAB] 3 tab PO TID #270 Aspirin [Aspirin BABY CHEW TAB] 81 mg PO QDAY #30 tab diphenhydrAMINE [Benadryl CAP] 50 mg PO Q8H PRN #15 capsule PRN Reason: Itching cloNIDine [Catapres] 0.3 mg PO Q8HR #90 tablet carvediloL [Coreg] 25 mg PO Q12H #60 tablet Isosorbide Dinitrate [Isordil Titradose] 2 tab PO Q8H #90 tablet polyethylene glycoL 3350 [Miralax 3350] 17 gm PO QDAY PRN #30 powd.pack PRN Reason: Constipation Oxycodone HCl/Acetaminophen [Percocet 7.5/325 mg] 1 each PO Q6HR PRN #20 tablet PRN Reason: Pain , Severe (7-10) NIFEdipine XL [Procardia Xl] 30 mg PO QDAY #30 tablet lisinopriL [Zestril TAB] 40 mg PO QDAY #30 tablet
[2019-11-11] MEDS: ASPIRIN 325 MG TAB PO SCH (10:45)
--- NOTE | 2019-11-11 11:42 | Progress Note ---
Assessment and Plan tte reviewed - EF 60-65%, severe concentric LV thickening, grade 1 diastolic dysfunction, no sig valvular abnormalities. Currently stable cardiac status. BPs improving. Chest pain appears musculoskeletal in origin. Consider PRN ibuprofen for analgesia. Nothing further to add from cardiac perspective at this time. Will sign off. Recommend pt follow up in our office with Dr. ESTEBAN Yin within 1-2 weeks of discharge ([phone]). The patient has been seen in conjunction with Dr. Munguia who agrees with the assessment and plan of care. 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 in SR HR 60s on telemetry. Objective Last Vital Signs Temp 98.4 F 11/11/19 03:58 Pulse 67 11/11/19 03:58 Resp 20 11/11/19 03:58 BP 130/61 11/11/19 03:58 Pulse Ox 93 11/11/19 09:48 - Physical Examination General: No Apparent Distress Neck: Positive: neck supple, trachea midline Cardiac: Positive: Reg Rate and Rhythm, S1/S2 Lungs: Positive: clear to auscultation Neuro: Positive: Grossly Intact Abdomen: Negative: Tender Skin: Negative: Rash Musculoskeletal: No Pain Extremities: Absent: edema - Imaging and Cardiology EKG: report reviewed, image reviewed Echo: report reviewed - Telemetry EKG Rhythm: Sinus Rhythm
[2019-11-11] MEDS: ONDANSETRON 4 MG/2 ML INJ IV PRN (12:07)
[2019-11-11] MEDS: NIFEdipine XL 30 MG TAB PO SCH (12:38)
[2019-11-11] MEDS: LISINOPRIL 40 MG TAB PO SCH (12:39)
[2019-11-11] MEDS: HEPARIN 5,000 UNIT/1 ML VIAL SUB-Q SCH (12:40)
[2019-11-11 13:58] LABS: Hematocrit 28.7 % (30.3-42.9); Hemoglobin 9.5 gm/dl (10.1-14.3)
[2019-11-11 14:23] LABS: Calcium 8.7 mg/dL (8.4-10.2)
[2019-11-11 14:31] LABS: Hepatitis B Surface Antigen Non-Reactive (Negative); Hepatitis C Virus Antibody Non-Reactive (NonReactive)
--- NOTE | 2019-11-11 15:30 | Progress Note ---
Assessment and Plan 1. End stage renal disease: Currently on M//F schedule at [facility] on [address]. Last outpatient HD 11/08. History of noncompliance with HD treatments. Planning for d/c today, 11/11, after HD completed. Encouraged patient to be compliant with outpatient HD treatments to prevent complications/frequent hospitalizations. Monitor renal function. Avoid nephrotoxic agents. Meds dosage based on GFR. Hemodialysis: 11/11. 2. FEN: Monitor lytes. 3. Hypertensive urgency: Noncompliant with medications at home. BP is improved today. Monitor BP closely. 4. Chest pain w/ elevated troponin: Cards consulted. 5. Flank pain: CT abd/pelvis unremarkable. Subjective Date of service: 11/11/19 Principal diagnosis: cp; htn; esrd Interval history: Patient was seen and examined at the bedside. HD was being performed at bedside and dialysis nurse present. No acute events overnight. Planning for d/c today, 11/11. Objective - Exam Narrative Exam: General appearance: well-developed, well-nourished, appears stated age, HD treatment being performed EENT: ATNC, PERRL, mucous membranes moist Neck: Present: neck supple, trachea midline Respiratory: Clear to Ascultation, Normal Exam Heart: regular, normal heart rate, S1S2, no murmurs Gastrointestinal: Present: normal, normoactive bowel sounds Absent: distended, masses, tenderness Integumentary: no rash, warm and dry Neurologic: no focal deficit, alert and oriented x3, strength 5/5 Musculoskeletal: Present: other (FROM all extremities) Psychiatric: cooperative, minimal conversation or eye contact Hemodialysis: L arm shunt - Vital Signs Vital signs: Vital Signs - 12hr 11/11/19 11/11/19 11/11/19 03:40 03:58 09:48 Temperature 98.0 F 98.4 F Pulse Rate 67 Respiratory 20 20 Rate Blood Pressure 130/61 Blood Pressure 130/61 [Right] O2 Sat by Pulse 100 93 Oximetry 11/11/19 11/11/19 11/11/19 12:26 12:39 13:30 Temperature 98.4 F Pulse Rate 61 61 62 Respiratory 16 Rate Blood Pressure 121/60 121/61 133/55 Blood Pressure [Right] O2 Sat by Pulse Oximetry 11/11/19 11/11/19 11/11/19 13:45 14:00 14:15 Temperature Pulse Rate 69 65 70 Respiratory Rate Blood Pressure 133/55 127/55 123/57 Blood Pressure [Right] O2 Sat by Pulse Oximetry 11/11/19 11/11/19 11/11/19 14:30 14:45 15:00 Temperature Pulse Rate 72 76 79 Respiratory Rate Blood Pressure 118/61 122/57 122/61 Blood Pressure [Right] O2 Sat by Pulse Oximetry 11/11/19 15:15 Temperature Pulse Rate 79 Respiratory Rate Blood Pressure 117/60 Blood Pressure [Right] O2 Sat by Pulse Oximetry - Lab 11/11/19 13:35 11/11/19 13:35 Most recent lab results Calcium 8.7 mg/dL (8.4-10.2) 11/11/19 13:35 Medications & Allergies - Medications Allergies/Adverse Reactions: Allergies tramadol Adverse Reaction (Verified 09/19/18 08:46) Unknown Home Medications: Home Medications Medication Instructions Recorded Confirmed Last Taken Type Acetaminophen [Acetaminophen TAB] 1 tab PO Q4H PRN #15 tablet 11/11/19 Unknown Rx Aspirin [Aspirin BABY CHEW TAB] 81 mg PO QDAY #30 tab 11/11/19 Unknown Rx Isosorbide Dinitrate [Isordil 2 tab PO Q8H #90 tablet 11/11/19 Unknown Rx Titradose] NIFEdipine XL [Procardia Xl] 30 mg PO QDAY #30 tablet 11/11/19 Unknown Rx Oxycodone HCl/Acetaminophen 1 each PO Q6HR PRN #20 tablet 11/11/19 Unknown Rx [Percocet 7.5/325 mg] carvediloL [Coreg] 25 mg PO Q12H #60 tablet 11/11/19 Unknown Rx cloNIDine [Catapres] 0.3 mg PO Q8HR #90 tablet 11/11/19 Unknown Rx diphenhydrAMINE [Benadryl CAP] 50 mg PO Q8H PRN #15 capsule 11/11/19 Unknown Rx hydrALAZINE [Apresoline TAB] 3 tab PO Q8HR #270 tab 11/11/19 Unknown Rx lisinopriL [Zestril TAB] 40 mg PO QDAY #30 tablet 11/11/19 Unknown Rx polyethylene glycoL 3350 [Miralax 17 gm PO QDAY PRN #30 powd.pack 11/11/19 Unknown Rx 3350] Active Medications: Generic Name Dose Route Start Last Admin Trade Name Freq PRN Reason Stop Dose Admin Acetaminophen 650 mg 11/10/19 03:38 Tylenol PO Q4H PRN Headache Aspirin 325 mg 11/10/19 10:00 11/11/19 10:45 Aspirin PO Not Given QDAY [facility] Carvedilol 25 mg 11/10/19 12:20 11/11/19 12:39 Coreg PO Not Given Q12H [facility] Clonidine HCl 0.3 mg 11/10/19 12:20 11/11/19 05:18 Catapres PO 0.3 mg Q8HR GERALD Administration Diphenhydramine HCl 50 mg 11/10/19 16:56 11/10/19 18:08 Benadryl PO 50 mg Q8H PRN Administration Itching Heparin Sodium (Porcine) 5,000 unit 11/10/19 03:45 11/11/19 12:40 Heparin SUB-Q Not Given Q12HR GERALD Heparin Sodium (Porcine) 2,000 unit 11/11/19 09:30 Heparin 10,000 Units/10 Ml IV TIFFANY PRN hemodialysis Heparin Sodium (Porcine) 1,000 unit 11/11/19 09:30 11/11/19 13:46 Heparin 10,000 Units/10 Ml IV 1,000 unit TIFFANY PRN Administration hemodialysis Hydralazine HCl 10 mg 11/10/19 03:39 11/10/19 08:52 Apresoline IV 10 mg Q4H PRN Administration Blood Pressure Hydralazine HCl 75 mg 11/10/19 12:20 11/11/19 05:19 Apresoline PO 75 mg Q8HR GERALD Administration Sodium Chloride 100 mls @ 999 mls/hr 11/11/19 09:30 Nacl 0.9% IV TIFFANY PRN Hypotension Sodium Chloride 100 mls @ 999 mls/hr 11/11/19 09:33 Nacl 0.9% IV TIFFANY PRN Hypotension Isosorbide Dinitrate 40 mg 11/10/19 13:00 11/11/19 05:19 Isordil Titradose PO 40 mg Q8H [facility] Administration Lisinopril 40 mg 11/10/19 13:00 11/11/19 12:39 Zestril PO Not Given QDAY [facility] Nifedipine 30 mg 11/10/19 12:30 11/11/19 12:38 Procardia Xl PO Not Given QDAY [facility] Nitroglycerin 0.5 inch 02/16/20 06:00 11/11/19 12:26 Nitro-Bid 2% TP Not Given QIDNTG [facility] Protocol Nitroglycerin 0.4 mg 11/10/19 03:37 Nitrostat SL .Q5MIN PRN Chest Pain Ondansetron HCl 4 mg 11/10/19 03:38 11/11/19 12:07 Zofran IV 4 mg Q8H PRN Administration Nausea And Vomiting Oxycodone HCl 2.5 mg 11/10/19 12:30 11/11/19 12:24 Roxicodone PO 2.5 mg Q6H PRN Administration Pain, Moderate (7-10) Oxycodone/Acetaminophen 1 tab 11/10/19 12:32 11/11/19 05:44 Percocet 5/325 PO 1 tab Q6H PRN Administration Pain, Moderate (7-10) Polyethylene Glycol 17 gm 11/10/19 12:23 Miralax 3350 PO QDAY PRN Constipation
[2019-11-11 17:43] VITALS: BP 127/67
== END 2019-11-11 20:45 | disposition home or self-care (01) | DRG 205 ==
LOC: ED 19:40 → 4A 11-10 03:32 → OBSVTOIN 11-10 09:22
PROVIDERS: ADMIT Internal Medicine; ATTEND Internal Medicine
PROC: 5A1D70Z Performance of Urinary Filtration, Intermittent, Less than 6 Hours Per Day (ICD-10-PCS; principal; 2019-11-11)
DX: M94.0 Chondrocostal junction syndrome [Tietze] (principal); N18.6 End stage renal disease; I16.9 Hypertensive crisis, unspecified; I13.2 Hypertensive heart and chronic kidney disease with heart failure and with stage 5 chronic kidney disease, or end stage renal disease; F17.200 Nicotine dependence, unspecified, uncomplicated; I16.0 Hypertensive urgency; R07.89 Other chest pain; K59.00 Constipation, unspecified; Z88.6 Allergy status to analgesic agent; Z79.899 Other long term (current) drug therapy; Z99.2 Dependence on renal dialysis
CPT/HCPCS: 36415; 71046; 74176; 80048; 80053; 80061; 80074; 82550; 82553; 83690; 84484; 84703; 85014; 85018; 85025; 93005; 93010; 93306; 96374; 96375; 96376; G0378; J0360; J1170; J1200; J1644; J1940; J2270; J2405

== ENCOUNTER 2021-03-14 09:29 | Inpatient (IN) | payer MEDICAID ==
[2021-03-14] MEDS ORDERED: ASPIRIN 325 MG TAB PO ONE (09:53)
[2021-03-14 10:28] LABS: Basophils # (Auto) 0.1 K/mm3 (0.0-0.1); Basophils % (Auto) 0.9 % (0.0-1.8); Eosinophils # (Auto) 0.4 K/mm3 (0.0-0.4); Hematocrit 21.4 % (30.3-42.9); Hemoglobin 7.2 gm/dl (10.1-14.3); Lymphocytes # (Auto) 0.9 K/mm3 (1.2-5.4); Lymphocytes % (Auto) 14.2 % (13.4-35.0); Mean Corpuscular HGB Conc 34 % (30-34); Mean Corpuscular Volume 101 fl (79-97); Monocytes # (Auto) 0.4 K/mm3 (0.0-0.8); Monocytes % (Auto) 5.5 % (0.0-7.3); Platelet Count 242 K/mm3 (140-440); Red Blood Count 2.11 M/mm3 (3.65-5.03); Red Cell Distribution Width 19.2 % (13.2-15.2)
--- NOTE | 2021-03-14 10:38 | XRay Report ---
CHEST 2 VIEWS INDICATION: chest pain/ sob. COMPARISON: 11/10/2019 FINDINGS: Support devices: None. Heart: Mild cardiac enlargement Lungs: Diffuse increased interstitium. Pleura: No significant pleural effusion. No pneumothorax. Additional findings: None. IMPRESSION: 1. Diffuse interstitial pulmonary edema. Signer Name: Jack Almeida MD Signed: 03/14/2021 10:34 AM Workstation Name: [id number]
[2021-03-14] MEDS ORDERED: cloNIDine 0.2 MG TAB PO ONE (10:40)
--- NOTE | 2021-03-14 10:46 | Emergency Department Report ---
ED Shortness of Breath HPI - General Chief Complaint: Dyspnea/Respdistress Stated Complaint: SOB, ELEVATED BLOOD PRESSURE Time Seen by Provider: 03/14/21 10:16 Source: patient, EMS Mode of arrival: Wheelchair Limitations: No Limitations - History of Present Illness Initial Comments: 35-year-old female, history of CHF, ESRD, presents to ED with shortness of breath. Patient states symptoms began this morning. She denies any chest pain. But she reports some chronic bilateral leg pain and back pain. Patient states she has not taken her blood pressure medications in 3 days because she was staying with her brother and she did not have her medications with her at his house. Patient reports she was last dialyzed 2 days ago. She is on Monday schedule. She is due for dialysis again tomorrow. MD Complaint: shortness of breath -: This morning Severity: moderate Quality: aching Consistency: constant Improves With: nothing Worsens With: exertion Known History Of: other (ESRD) Treatments Prior to Arrival: none - Related Data Home Oxygen Therapy: No Previous Rx's Medication Instructions Recorded Last Taken Type Acetaminophen [Acetaminophen TAB] 1 tab PO Q4H PRN #15 tablet 11/11/19 03/11/21 Rx Aspirin [Aspirin BABY CHEW TAB] 81 mg PO QDAY #30 tab 11/11/19 03/11/21 Rx Isosorbide Dinitrate [Isordil] 2 tab PO Q8H #90 tablet 11/11/19 03/11/21 Rx NIFEdipine XL [Procardia Xl] 30 mg PO QDAY #30 tablet 11/11/19 03/11/21 Rx Oxycodone HCl/Acetaminophen 1 each PO Q6HR PRN #20 tablet 11/11/19 03/11/21 Rx [Percocet 7.5/325 mg] carvediloL [Coreg] 25 mg PO Q12H #60 tablet 11/11/19 03/11/21 Rx cloNIDine [Catapres] 0.3 mg PO Q8HR #90 tablet 11/11/19 03/11/21 Rx diphenhydrAMINE [Benadryl CAP] 50 mg PO Q8H PRN #15 capsule 11/11/19 03/11/21 Rx hydrALAZINE [Apresoline TAB] 3 tab PO Q8HR #270 tab 11/11/19 03/11/21 Rx lisinopriL [Zestril TAB] 40 mg PO QDAY #30 tablet 11/11/19 03/11/21 Rx polyethylene glycoL 3350 [Miralax 17 gm PO QDAY PRN #30 powd.pack 11/11/19 03/11/21 Rx 3350] Allergies Allergy/AdvReac Type Severity Reaction Status Date / Time tramadol AdvReac Unknown Verified 03/15/21 05:39 ED Review of Systems ROS: Stated complaint: SOB, ELEVATED BLOOD PRESSURE Other details as noted in HPI Comment: All other systems reviewed and negative Respiratory: shortness of breath Cardiovascular: denies: chest pain Gastrointestinal: denies: nausea, vomiting Musculoskeletal: other (Reports chronic bilateral leg pain) ED Past Medical Hx - Past Medical History Previous Medical History?: Yes Hx Hypertension: Yes Hx Congestive Heart Failure: Yes Hx Diabetes: No Hx Renal Disease: Yes (on hd) Hx Asthma: No Hx COPD: No Additional medical history: Dialysis - Surgical History Past Surgical History?: Yes Additional Surgical History: hd shunt - Social History Smoking Status: Current Every Day Smoker Substance Use Type: Alcohol, Marijuana - Medications Home Medications: Home Medications Medication Instructions Recorded Confirmed Last Taken Type Acetaminophen [Acetaminophen TAB] 1 tab PO Q4H PRN #15 tablet 11/11/19 03/15/21 03/11/21 Rx Aspirin [Aspirin BABY CHEW TAB] 81 mg PO QDAY #30 tab 11/11/19 03/15/21 03/11/21 Rx Isosorbide Dinitrate [Isordil] 2 tab PO Q8H #90 tablet 11/11/19 03/15/21 03/11/21 Rx NIFEdipine XL [Procardia Xl] 30 mg PO QDAY #30 tablet 11/11/19 03/15/21 03/11/21 Rx Oxycodone HCl/Acetaminophen 1 each PO Q6HR PRN #20 tablet 11/11/19 03/15/21 03/11/21 Rx [Percocet 7.5/325 mg] carvediloL [Coreg] 25 mg PO Q12H #60 tablet 11/11/19 03/15/21 03/11/21 Rx cloNIDine [Catapres] 0.3 mg PO Q8HR #90 tablet 11/11/19 03/15/21 03/11/21 Rx diphenhydrAMINE [Benadryl CAP] 50 mg PO Q8H PRN #15 capsule 11/11/19 03/15/21 03/11/21 Rx hydrALAZINE [Apresoline TAB] 3 tab PO Q8HR #270 tab 11/11/19 03/15/21 03/11/21 Rx lisinopriL [Zestril TAB] 40 mg PO QDAY #30 tablet 11/11/19 03/15/21 03/11/21 Rx polyethylene glycoL 3350 [Miralax 17 gm PO QDAY PRN #30 powd.pack 11/11/19 03/15/21 03/11/21 Rx 3350] ED Physical Exam - General Limitations: No Limitations General appearance: alert, in no apparent distress - Head Head exam: Present: atraumatic, normocephalic - Eye Eye exam: Present: normal appearance, EOMI - ENT ENT exam: Present: mucous membranes moist - Neck Neck exam: Present: normal inspection - Respiratory Respiratory exam: Present: normal lung sounds bilaterally. Absent: respiratory distress - Cardiovascular Cardiovascular Exam: Present: regular rate, normal rhythm - GI/Abdominal GI/Abdominal exam: Present: soft. Absent: distended, tenderness - Extremities Exam Extremities exam: Present: normal inspection. Absent: pedal edema, calf tenderness - Neurological Exam Neurological exam: Present: alert, oriented X3 - Psychiatric Psychiatric exam: Present: normal affect, normal mood - Skin Skin exam: Present: warm, dry, intact, normal color ED Course Vital Signs 03/14/21 03/14/21 03/14/21 09:47 10:31 10:45 Temperature 98.4 F Pulse Rate 81 87 Respiratory 22 26 H Rate Blood Pressure 198/129 224/146 Blood Pressure [Right] O2 Sat by Pulse 100 100 100 Oximetry O2 Sat by Pulse Oximetry [ Posterior Bilateral] 03/14/21 03/14/21 03/14/21 10:57 11:01 11:15 Temperature Pulse Rate 88 88 86 Respiratory 20 22 Rate Blood Pressure 224/146 224/146 214/146 Blood Pressure [Right] O2 Sat by Pulse 100 100 Oximetry O2 Sat by Pulse Oximetry [ Posterior Bilateral] 03/14/21 03/14/21 03/14/21 11:31 11:45 12:01 Temperature Pulse Rate 85 85 118 H Respiratory 14 22 29 H Rate Blood Pressure 206/139 205/137 205/137 Blood Pressure [Right] O2 Sat by Pulse 100 100 99 Oximetry O2 Sat by Pulse Oximetry [ Posterior Bilateral] 03/14/21 03/14/21 03/14/21 12:15 12:19 12:31 Temperature Pulse Rate 96 H 94 H 93 H Respiratory 16 24 Rate Blood Pressure 252/161 245/146 257/143 Blood Pressure [Right] O2 Sat by Pulse 96 Oximetry O2 Sat by Pulse Oximetry [ Posterior Bilateral] 03/14/21 03/14/21 03/14/21 12:45 13:01 13:15 Temperature Pulse Rate 93 H 94 H 93 H Respiratory 27 H 25 H 22 Rate Blood Pressure 209/126 209/126 200/121 Blood Pressure [Right] O2 Sat by Pulse 97 99 97 Oximetry O2 Sat by Pulse Oximetry [ Posterior Bilateral] 03/14/21 03/14/21 03/14/21 14:01 15:15 15:30 Temperature Pulse Rate 92 H 82 81 Respiratory 22 Rate Blood Pressure 196/122 225/144 214/139 Blood Pressure [Right] O2 Sat by Pulse 100 Oximetry O2 Sat by Pulse Oximetry [ Posterior Bilateral] 03/14/21 03/14/21 03/14/21 15:45 16:00 16:04 Temperature 98.2 F Pulse Rate 78 75 89 Respiratory 18 Rate Blood Pressure 207/128 203/123 215/121 Blood Pressure [Right] O2 Sat by Pulse Oximetry O2 Sat by Pulse 96 Oximetry [ Posterior Bilateral] 03/14/21 03/14/21 03/14/21 16:15 16:30 16:45 Temperature Pulse Rate 71 70 75 Respiratory Rate Blood Pressure 186/122 188/113 182/101 Blood Pressure [Right] O2 Sat by Pulse Oximetry O2 Sat by Pulse Oximetry [ Posterior Bilateral] 03/14/21 03/14/21 03/14/21 17:00 17:15 17:30 Temperature Pulse Rate 75 75 78 Respiratory Rate Blood Pressure 178/101 180/98 194/112 Blood Pressure [Right] O2 Sat by Pulse Oximetry O2 Sat by Pulse Oximetry [ Posterior Bilateral] 03/14/21 03/14/21 03/14/21 17:45 18:00 18:15 Temperature Pulse Rate 78 76 75 Respiratory Rate Blood Pressure 186/109 192/104 172/103 Blood Pressure [Right] O2 Sat by Pulse Oximetry O2 Sat by Pulse Oximetry [ Posterior Bilateral] 03/14/21 03/14/21 03/14/21 19:29 20:27 20:40 Temperature 98.8 F Pulse Rate 76 83 Respiratory 18 Rate Blood Pressure 179/101 189/116 190/99 Blood Pressure [Right] O2 Sat by Pulse 86 Oximetry O2 Sat by Pulse 96 Oximetry [ Posterior Bilateral] 03/14/21 03/14/21 03/14/21 20:47 20:51 21:01 Temperature Pulse Rate 79 84 91 H Respiratory 13 16 17 Rate Blood Pressure 167/90 167/90 167/90 Blood Pressure 197/90 [Right] O2 Sat by Pulse 100 100 100 Oximetry O2 Sat by Pulse Oximetry [ Posterior Bilateral] 03/14/21 03/14/21 03/14/21 21:11 21:21 21:30 Temperature Pulse Rate 94 H 91 H 91 H Respiratory 16 14 13 Rate Blood Pressure 167/90 167/90 167/90 Blood Pressure [Right] O2 Sat by Pulse 97 98 99 Oximetry O2 Sat by Pulse Oximetry [ Posterior Bilateral] 03/14/21 03/14/21 03/14/21 21:41 21:51 22:01 Temperature Pulse Rate 91 H 97 H 95 H Respiratory 21 15 20 Rate Blood Pressure 167/90 167/90 167/90 Blood Pressure [Right] O2 Sat by Pulse 100 Oximetry O2 Sat by Pulse Oximetry [ Posterior Bilateral] 03/14/21 03/14/21 03/14/21 22:11 22:21 22:31 Temperature Pulse Rate 89 84 82 Respiratory 16 15 14 Rate Blood Pressure 167/90 167/90 167/90 Blood Pressure [Right] O2 Sat by Pulse 72 L Oximetry O2 Sat by Pulse Oximetry [ Posterior Bilateral] 03/14/21 03/14/21 03/14/21 22:41 22:51 23:01 Temperature Pulse Rate 79 82 81 Respiratory 14 14 14 Rate Blood Pressure 167/90 167/90 167/90 Blood Pressure [Right] O2 Sat by Pulse 80 L 84 82 L Oximetry O2 Sat by Pulse Oximetry [ Posterior Bilateral] 03/14/21 03/14/21 03/14/21 23:11 23:21 23:31 Temperature Pulse Rate 80 80 79 Respiratory 14 14 15 Rate Blood Pressure 167/90 167/90 167/90 Blood Pressure [Right] O2 Sat by Pulse 85 88 Oximetry O2 Sat by Pulse Oximetry [ Posterior Bilateral] 03/14/21 03/15/21 23:41 00:09 Temperature Pulse Rate 79 78 Respiratory 13 12 Rate Blood Pressure 167/90 Blood Pressure 168/78 [Right] O2 Sat by Pulse 100 Oximetry O2 Sat by Pulse Oximetry [ Posterior Bilateral] - Consultations Consultation #1: 03/14/21 11:[address] Temple, route driver. States if patient still makes urine, can give Lasix 100 mg IV. Patient's potassium only 5.2, just Kayexalate is okay at this time. Will dialyze in the morning. 03/14/21 12:[address] Cox. Patient complaining of increased dyspnea. O2 sats 90% on room air. States will place orders for patient to be dialyzed today. ED Medical Decision Making - Lab Data Result diagrams: 03/14/21 10:24 03/15/21 07:28 - EKG Data -: EKG Interpreted by [facility] EKG shows normal: sinus rhythm, axis, QRS complexes, ST-T waves Rate: normal - EKG Data Interpretation: no acute changes, other (prolonged QT) - Radiology Data Radiology results: report reviewed, image reviewed - Medical Decision Making 35-year-old female presents to ED with shortness of breath. History of end- stage renal disease. Chest x-ray shows pulmonary edema. O2 sats decreased to 90%. Potassium is mildly elevated at 5.2. Patient also extremely hypertensive. Patient was given clonidine and hydralazine. I spoke with route driver who will arrange for patient to be dialyzed today. - Differential Diagnosis Hyperkalemia, pulmonary edema, hypertensive emergency Critical Care Time: Yes Critical care time in (mins) excluding proc time.: 35 Critical care attestation.: If time is entered above; I have spent that time in minutes in the direct care of this critically ill patient, excluding procedure time. Critical Care Time: 35 min ED Disposition Clinical Impression: Pulmonary edema, ESRD needing dialysis, Hypertensive emergency Anemia Qualifiers: Anemia type: due to chronic kidney disease Disposition: OP ADMIT IP TO THIS HOSP Is pt being admited?: Yes Condition: Stable Time of Disposition: 12:34
[2021-03-14 11:11] LABS: INR 1.09 (0.87-1.13)
[2021-03-14 11:12] LABS: Partial Thromboplastin Time 29.1 Sec. (24.2-36.6)
[2021-03-14 11:19] LABS: Albumin 4.5 g/dL (3.9-5); Calcium 8.7 mg/dL (8.4-10.2)
[2021-03-14] MEDS ORDERED: LORazepam 2 MG/ML VIAL IV ONE (11:33)
[2021-03-14] MEDS ORDERED: LORazepam 1 MG TAB PO ONE (11:36)
[2021-03-14] MEDS ORDERED: hydrALAZINE 20 MG/1 ML INJ IV ONE ×2 (11:37→20:35)
[2021-03-14] MEDS ORDERED: SODIUM POLYSTYRENE 15 GM/60 ML ORAL LIQD PO ONE (11:54)
[2021-03-14] MEDS ORDERED: FUROSEMIDE 100 MG/10 ML INJ IV ONE (11:54)
[2021-03-14] MEDS ORDERED: ONDANSETRON 4 MG/2 ML INJ IV ONE (12:09)
[2021-03-14] MEDS ORDERED: MORPHINE 2 MG/1 ML INJ IV ONE (12:38)
[2021-03-14 14:48] LABS: Hepatitis B Surface Antigen Non-Reactive (Negative); Hepatitis C Virus Antibody Non-Reactive (NonReactive)
[2021-03-14] MEDS ORDERED: HYDROmorphone 1 MG/1 ML INJ IV ONE (20:35)
[2021-03-15] MEDS ORDERED: MORPHINE 2 MG/1 ML INJ IV ONE (05:39)
[2021-03-15] MEDS ORDERED: ONDANSETRON 4 MG/2 ML INJ IV PRN ×2 (05:40→07:28)
--- NOTE | 2021-03-15 07:19 | History and Physical Report ---
History of Present Illness Date of examination: 03/14/21 Date of admission: 03/14/21 22:35 Chief complaint: Increasing shortness of breath for 2 days History of present illness: 35-year-old -[place] female with history of multiple medical problems including end-stage renal disease, CHF, hypertension and chronic pain comes in for increasing shortness of breath and orthopnea.. Shortness of breath going on for 2 days more so since morning. Patient stopped taking medications for the last 3 days. Patient also has bilateral leg pain. Patient reports that she was dialyzed on Monday. She is due for dialysis on Monday. Today Monday. Patient has class IV NYHA symptoms. No fever or chills. No exposure to coronavirus. - Past Medical History Previous Medical History?: Yes --Hypertension: Yes --Congestive Heart Failure: Yes --Renal Disease: Yes (on hd) Additional medical history: Dialysis - Surgical History Past Surgical History?: Yes Additional Surgical History: hd shunt - Social History Smoking Status: Current Every Day Smoker Substance Use Type: Alcohol, Marijuana Family history -HTN - Medications Home Medications: Home Medications Medication Instructions Recorded Confirmed Last Taken Type Acetaminophen [Acetaminophen TAB] 1 tab PO Q4H PRN #15 tablet 11/11/19 Unknown Rx Aspirin [Aspirin BABY CHEW TAB] 81 mg PO QDAY #30 tab 11/11/19 Unknown Rx Isosorbide Dinitrate [Isordil] 2 tab PO Q8H #90 tablet 11/11/19 Unknown Rx NIFEdipine XL [Procardia Xl] 30 mg PO QDAY #30 tablet 11/11/19 Unknown Rx Oxycodone HCl/Acetaminophen 1 each PO Q6HR PRN #20 tablet 11/11/19 Unknown Rx [Percocet 7.5/325 mg] carvediloL [Coreg] 25 mg PO Q12H #60 tablet 11/11/19 Unknown Rx cloNIDine [Catapres] 0.3 mg PO Q8HR #90 tablet 11/11/19 Unknown Rx diphenhydrAMINE [Benadryl CAP] 50 mg PO Q8H PRN #15 capsule 11/11/19 Unknown Rx hydrALAZINE [Apresoline TAB] 3 tab PO Q8HR #270 tab 11/11/19 Unknown Rx lisinopriL [Zestril TAB] 40 mg PO QDAY #30 tablet 11/11/19 Unknown Rx polyethylene glycoL 3350 [Miralax 17 gm PO QDAY PRN #30 powd.pack 11/11/19 Unknown Rx 3350] Review of Systems ROS: Constitutional no weight loss or weight gain no fever or chills HEENT no sore throat no post nasal drip no diplopia Neck no neck stiffness no lymph gland enlargement Chest and lungs increasing shortness of breath CVS no chest pain no diaphoresis no palpitations GI no nausea no vomiting no diarrhea Genitourinary system no dysuria no flank pain Musculoskeletal system no muscle pains no joint pains [employer] no syncope no seizures Skin no rash no itching Psychiatric no depression no homicidal or suicidal tendencies Hematologic no lymphedema or bruising Endocrine no polydipsia no polyuria no cold intolerance no heat intolerance Medications and Allergies Allergies Allergy/AdvReac Type Severity Reaction Status Date / Time tramadol AdvReac Unknown Verified 03/15/21 05:39 Home Medications Medication Instructions Recorded Confirmed Last Taken Type Acetaminophen [Acetaminophen TAB] 1 tab PO Q4H PRN #15 tablet 11/11/19 03/15/21 03/11/21 Rx Aspirin [Aspirin BABY CHEW TAB] 81 mg PO QDAY #30 tab 11/11/19 03/15/21 03/11/21 Rx Isosorbide Dinitrate [Isordil] 2 tab PO Q8H #90 tablet 11/11/19 03/15/21 03/11/21 Rx NIFEdipine XL [Procardia Xl] 30 mg PO QDAY #30 tablet 11/11/19 03/15/21 03/11/21 Rx Oxycodone HCl/Acetaminophen 1 each PO Q6HR PRN #20 tablet 11/11/19 03/15/21 03/11/21 Rx [Percocet 7.5/325 mg] carvediloL [Coreg] 25 mg PO Q12H #60 tablet 11/11/19 03/15/21 03/11/21 Rx cloNIDine [Catapres] 0.3 mg PO Q8HR #90 tablet 11/11/19 03/15/21 03/11/21 Rx diphenhydrAMINE [Benadryl CAP] 50 mg PO Q8H PRN #15 capsule 11/11/19 03/15/21 03/11/21 Rx hydrALAZINE [Apresoline TAB] 3 tab PO Q8HR #270 tab 0203/15/21 03/11/21 Rx lisinopriL [Zestril TAB] 40 mg PO QDAY #30 tablet 11/11/19 03/15/21 03/11/21 Rx polyethylene glycoL 3350 [Miralax 17 gm PO QDAY PRN #30 powd.pack 11/11/19 03/15/21 03/11/21 Rx 3350] Active Meds: Active Medications Ondansetron HCl (Ondansetron 4 Mg/2 Ml Inj) 4 mg IV Q8H PRN PRN Reason: Nausea And Vomiting Exam - Constitutional Vitals: Temp Pulse Resp BP Pulse Ox 97.8 F 88 17 172/96 96 03/15/21 03:30 03/15/21 03:30 03/15/21 03:30 03/15/21 03:30 03/15/21 03:30 General appearance: Present: no acute distress, mild distress, well-nourished - EENT Eyes: Present: PERRL ENT: hearing intact, clear oral mucosa - Neck Neck: Present: supple, normal ROM - Respiratory Respiratory effort: normal Respiratory: bilateral: CTA - Cardiovascular Heart rate: 72 Rhythm: regular Heart Sounds: Present: S1 & S2. Absent: rub, click - Extremities Extremities: pulses symmetrical, No edema Peripheral Pulses: within normal limits - Abdominal General gastrointestinal: Present: soft, non-tender, non-distended, normal bowel sounds Female genitourinary: Present: normal - Integumentary Integumentary: Present: clear, warm, dry - Musculoskeletal Musculoskeletal: gait normal, strength equal bilaterally - Psychiatric Psychiatric: appropriate mood/affect, intact judgment & insight - Neurologic Neurologic: CNII-XII intact, moves all extremities HEART Score - HEART Score History: Moderately suspicious Age: < 45 Risk factors: > 3 risk factors or hx of atherosclerotic disease Troponin: Troponin T 0.021 ng/mL (0.00-0.029) 03/14/21 Unknown Troponin: 1-3x normal limit - Critical Actions Critical Actions: 4-6 pts:12-16.6% risk of adverse cardiac event. Should be admitted Results - Labs CBC & Chem 7: 03/14/21 10:24 03/14/21 10:24 Labs: Laboratory Last Values WBC 6.7 K/mm3 (4.5-11.0) 03/14/21 10:24 RBC 2.11 M/mm3 (3.65-5.03) L 03/14/21 10:24 Hgb 7.2 gm/dl (10.1-14.3) L 03/14/21 10:24 Hct 21.4 % (30.3-42.9) L 03/14/21 10:24 MCV 101 fl (79-97) H 03/14/21 10:24 MCH 34 pg (28-32) H 03/14/21 10:24 MCHC 34 % (30-34) 03/14/21 10:24 RDW 19.2 % (13.2-15.2) H 03/14/21 10:24 Plt Count 242 K/mm3 (140-440) 03/14/21 10:24 Lymph % (Auto) 14.2 % (13.4-35.0) 03/14/21 10:24 Pershing % (Auto) 5.5 % (0.0-7.3) 03/14/21 10:24 Eos % (Auto) 6.0 % (0.0-4.3) H 03/14/21 10:24 Baso % (Auto) 0.9 % (0.0-1.8) 03/14/21 10:24 Lymph # (Auto) 0.9 K/mm3 (1.2-5.4) L 03/14/21 10:24 Pershing # (Auto) 0.4 K/mm3 (0.0-0.8) 03/14/21 10:24 Eos # (Auto) 0.4 K/mm3 (0.0-0.4) 03/14/21 10:24 Baso # (Auto) 0.1 K/mm3 (0.0-0.1) 03/14/21 10:24 Seg Neutrophils % 73.4 % (40.0-70.0) H 03/14/21 10:24 Seg Neutrophils # 4.9 K/mm3 (1.8-7.7) 03/14/21 10:24 PT 14.6 Sec. (12.2-14.9) 03/14/21 10:24 INR 1.09 (0.87-1.13) 03/14/21 10:24 APTT 29.1 Sec. (24.2-36.6) 03/14/21 10:24 Sodium 133 mmol/L (137-145) L 03/14/21 10:24 Potassium 5.2 mmol/L (3.6-5.0) H 03/14/21 10:24 Chloride 91.3 mmol/L (98-107) L 03/14/21 10:24 Carbon Dioxide 23 mmol/L (22-30) 03/14/21 10:24 Anion Gap 24 mmol/L 03/14/21 10:24 BUN 47 mg/dL (7-17) H 03/14/21 10:24 Creatinine 9.1 mg/dL (0.6-1.2) H 03/14/21 10:24 Estimated GFR 6 ml/min 03/14/21 10:24 BUN/Creatinine Ratio 5 % 03/14/21 10:24 Glucose 105 mg/dL (65-100) H 03/14/21 10:24 Calcium 8.7 mg/dL (8.4-10.2) 03/14/21 10:24 Total Bilirubin 0.20 mg/dL (0.1-1.2) 03/14/21 10:24 AST 18 units/L (5-40) 03/14/21 10:24 ALT 12 units/L (7-56) 03/14/21 10:24 Alkaline Phosphatase 115 units/L (35-129) 03/14/21 10:24 Troponin T 0.021 ng/mL (0.00-0.029) 03/14/21 Unknown NT-Pro-B Natriuret Pep 29506 pg/mL (0-450) H 03/14/21 10:24 Total Protein 7.3 g/dL (6.3-8.2) 03/14/21 10:24 Albumin 4.5 g/dL (3.9-5) 03/14/21 10:24 Albumin/Globulin Ratio 1.6 % 03/14/21 10:24 Hepatitis A IgM Ab Non-reactive (NonReactive) 03/14/21 14:18 Hep Bs Antigen Non-reactive (Negative) 03/14/21 14:18 Hep B Core IgM Ab Non-reactive (NonReactive) 03/14/21 14:18 Hepatitis C Antibody Non-reactive (NonReactive) 03/14/21 14:18 Short CBC 03/14/21 Range/Units 10:24 WBC 6.7 (4.5-11.0) K/mm3 Hgb 7.2 L (10.1-14.3) gm/dl Hct 21.4 L (30.3-42.9) % Plt Count 242 (140-440) K/mm3 BMP 03/14/21 10:24 Sodium 133 L Potassium 5.2 H Chloride 91.3 L Carbon Dioxide 23 BUN 47 H Creatinine 9.1 H Glucose 105 H Calcium 8.7 Cardiac Enzymes 03/14/21 03/14/21 03/14/21 Range/Units 10:24 14:04 Unknown Troponin T 0.021 0.014 0.021 (0.00-0.029) ng/mL Liver Function 03/14/21 Range/Units 10:24 Total Bilirubin 0.20 (0.1-1.2) mg/dL AST 18 (5-40) units/L ALT 12 (7-56) units/L Alkaline Phosphatase 115 (35-129) units/L Albumin 4.5 (3.9-5) g/dL - Imaging and Cardiology EKG: report reviewed (Sinus tachycardia heart rate of 100 prominent) Candelaria/IV: Voiding Method Toilet Assessment and Plan Advance Directives: Yes (Full code) VTE prophylaxis?: Chemical Plan of care discussed with patient/family: Yes - Patient Problems (1) Hypertensive emergency Current Visit: Yes Status: Acute Plan to address problem: Patient on IV hydralazine every 3 hours Continue home antihypertensives and adjust medications If necessary Cardene drip (2) Acute exacerbation of CHF (congestive heart failure) Current Visit: Yes Status: Chronic Qualifiers: Heart failure type: combined systolic and diastolic Qualified Code(s): I50.43 - Acute on chronic combined systolic (congestive) and diastolic (congestive) heart failure Plan to address problem: Emergent hemodialysis and increased ultrafiltration (3) ESRD needing dialysis Current Visit: Yes Status: Chronic Plan to address problem: Nephrology consulted (4) Anemia Current Visit: Yes Status: Chronic Qualifiers: Anemia type: due to chronic kidney disease Plan to address problem: Transfuse 1 unit we will give her shots of breath even though her hemoglobin is 7.2 (5) Hyponatremia Current Visit: Yes Status: Chronic Plan to address problem: Should correct with increased ultrafiltration (6) Hyperlipidemia Current Visit: Yes Status: Chronic Plan to address problem: On statins (7) Hyperkalemia Current Visit: Yes Status: Acute Plan to address problem: On calcium gluconate I am going for hemodialysis (8) DVT prophylaxis Current Visit: Yes Status: Acute Plan to address problem: On heparin and GI prophylaxis
[2021-03-15] MEDS ORDERED: NON-FORMULARY EACH (Oxycodone Hcl/Acetaminophen [Percocet 7.5/325 Mg] 1 EACH Tablet) PO PRN (07:25)
[2021-03-15] MEDS ORDERED: ACETAMINOPHEN 325 MG TAB PO PRN ×2 (07:25→08:00)
[2021-03-15] MEDS ORDERED: hydrALAZINE 20 MG/1 ML INJ IV PRN (08:00)
[2021-03-15] MEDS ORDERED: cloNIDine 0.2 MG TAB PO SCH (08:00)
[2021-03-15] MEDS ORDERED: hydrALAZINE 20 MG/1 ML INJ IV SCH (08:00)
[2021-03-15] MEDS: IPRATROPIUM/ALBUTEROL SULFATE 3 ML AMPUL.NEB IH SCH ×4 (08:29→19:55)
[2021-03-15] MEDS ORDERED: POLYETHYLENE GLYCOL 3350 17 GM POWDER PO PRN (08:30)
--- NOTE | 2021-03-15 08:33 | Progress Note ---
Assessment and Plan Assessment and plan: (1) Hypertensive emergency Increase procardia to BID Continue home antihypertensives and adjust medications with increase of hydralazine to 100mg TID (2) Acute exacerbation of CHF (congestive heart failure) Hemodialysis and increased ultrafiltration per Nephrology (3) ESRD needing dialysis Await Nephrology consult (4) Anemia F/U H/H (5) Hyponatremia Should correct with increased ultrafiltration (6) Hyperlipidemia On statins (7) Hyperkalemia On calcium gluconate I am going for hemodialysis (8) DVT prophylaxis On heparin and GI prophylaxis History Interval history: No new issues overnight Hospitalist Physical - Constitutional Vitals: Temp Pulse Resp BP Pulse Ox 98.6 F 81 16 181/108 95 03/15/21 07:28 03/15/21 07:28 03/15/21 07:28 03/15/21 07:28 03/15/21 07:28 General appearance: Present: no acute distress, mild distress, well-nourished - EENT Eyes: Present: PERRL, EOM intact ENT: hearing intact, clear oral mucosa, dentition normal - Neck Neck: Present: supple, normal ROM - Respiratory Respiratory effort: normal Respiratory: bilateral: CTA - Cardiovascular Rhythm: regular Heart Sounds: Present: S1 & S2. Absent: gallop, rub - Extremities Extremities: no ischemia, No edema, Full ROM - Abdominal General gastrointestinal: soft, non-tender, non-distended, normal bowel sounds - Integumentary Integumentary: Present: clear, warm, dry - Neurologic Neurologic: CNII-XII intact, moves all extremities HEART Score - HEART Score Age: < 45 Risk factors: > 3 risk factors or hx of atherosclerotic disease Troponin: Troponin T 0.021 ng/mL (0.00-0.029) 03/14/21 Unknown Troponin: 1-3x normal limit - Critical Actions Critical Actions: 4-6 pts:12-16.6% risk of adverse cardiac event. Should be admitted Results - Labs CBC & Chem 7: 03/14/21 10:24 03/14/21 10:24 Labs: Laboratory Last Values WBC 6.7 K/mm3 (4.5-11.0) 03/14/21 10:24 RBC 2.11 M/mm3 (3.65-5.03) L 03/14/21 10:24 Hgb 7.2 gm/dl (10.1-14.3) L 03/14/21 10:24 Hct 21.4 % (30.3-42.9) L 03/14/21 10:24 MCV 101 fl (79-97) H 03/14/21 10:24 MCH 34 pg (28-32) H 03/14/21 10:24 MCHC 34 % (30-34) 03/14/21 10:24 RDW 19.2 % (13.2-15.2) H 03/14/21 10:24 Plt Count 242 K/mm3 (140-440) 03/14/21 10:24 Lymph % (Auto) 14.2 % (13.4-35.0) 03/14/21 10:24 Morris % (Auto) 5.5 % (0.0-7.3) 03/14/21 10:24 Eos % (Auto) 6.0 % (0.0-4.3) H 03/14/21 10:24 Baso % (Auto) 0.9 % (0.0-1.8) 03/14/21 10:24 Lymph # (Auto) 0.9 K/mm3 (1.2-5.4) L 03/14/21 10:24 Morris # (Auto) 0.4 K/mm3 (0.0-0.8) 03/14/21 10:24 Eos # (Auto) 0.4 K/mm3 (0.0-0.4) 03/14/21 10:24 Baso # (Auto) 0.1 K/mm3 (0.0-0.1) 03/14/21 10:24 Seg Neutrophils % 73.4 % (40.0-70.0) H 03/14/21 10:24 Seg Neutrophils # 4.9 K/mm3 (1.8-7.7) 03/14/21 10:24 PT 14.6 Sec. (12.2-14.9) 03/14/21 10:24 INR 1.09 (0.87-1.13) 03/14/21 10:24 APTT 29.1 Sec. (24.2-36.6) 03/14/21 10:24 Sodium 133 mmol/L (137-145) L 03/14/21 10:24 Potassium 5.2 mmol/L (3.6-5.0) H 03/14/21 10:24 Chloride 91.3 mmol/L (98-107) L 03/14/21 10:24 Carbon Dioxide 23 mmol/L (22-30) 03/14/21 10:24 Anion Gap 24 mmol/L 03/14/21 10:24 BUN 47 mg/dL (7-17) H 03/14/21 10:24 Creatinine 9.1 mg/dL (0.6-1.2) H 03/14/21 10:24 Estimated GFR 6 ml/min 03/14/21 10:24 BUN/Creatinine Ratio 5 % 03/14/21 10:24 Glucose 105 mg/dL (65-100) H 03/14/21 10:24 Calcium 8.7 mg/dL (8.4-10.2) 03/14/21 10:24 Total Bilirubin 0.20 mg/dL (0.1-1.2) 03/14/21 10:24 AST 18 units/L (5-40) 03/14/21 10:24 ALT 12 units/L (7-56) 03/14/21 10:24 Alkaline Phosphatase 115 units/L (35-129) 03/14/21 10:24 Troponin T 0.021 ng/mL (0.00-0.029) 03/14/21 Unknown NT-Pro-B Natriuret Pep 97008 pg/mL (0-450) H 03/14/21 10:24 Total Protein 7.3 g/dL (6.3-8.2) 03/14/21 10:24 Albumin 4.5 g/dL (3.9-5) 03/14/21 10:24 Albumin/Globulin Ratio 1.6 % 03/14/21 10:24 Hepatitis A IgM Ab Non-reactive (NonReactive) 03/14/21 14:18 Hep Bs Antigen Non-reactive (Negative) 03/14/21 14:18 Hep B Core IgM Ab Non-reactive (NonReactive) 03/14/21 14:18 Hepatitis C Antibody Non-reactive (NonReactive) 03/14/21 14:18 Candelaria/IV: Voiding Method Toilet Active Medications - Current Medications Current Medications: Generic Name Dose Route Start Last Admin Trade Name Freq PRN Reason Stop Dose Admin Acetaminophen 650 mg 03/15/21 08:00 Acetaminophen 325 Mg Tab PO Q4H PRN Pain MILD(1-3)/Fever >100.5/GONZALEZ Albuterol/Ipratropium 1 ampul 03/15/21 08:00 03/15/21 08:29 Ipratropium/Albuterol Sulfate 3 Ml Ampul.Neb IH 1 ampul Q4HRT [facility] Administration Aspirin 81 mg 03/15/21 10:00 Aspirin 81 Mg Tab Chew PO QDAY [facility] Carvedilol 25 mg 03/15/21 08:00 Carvedilol 25 Mg Tab PO Q12H [facility] Clonidine HCl 0.3 mg 03/15/21 09:00 Clonidine 0.1 Mg Tab PO Q8HR GERALD Diphenhydramine HCl 50 mg 03/15/21 08:00 Diphenhydramine 50 Mg Cap PO Q8H PRN Itching Heparin Sodium (Porcine) 5,000 unit 03/15/21 10:00 Heparin 5,000 Unit/1 Ml Vial SUB-Q Q12HR [facility] Hydralazine HCl 20 mg 03/15/21 08:00 Hydralazine 20 Mg/1 Ml Inj IV 03/15/21 11:00 ONCE GERALD Hydralazine HCl 10 mg 03/15/21 08:00 Hydralazine 20 Mg/1 Ml Inj IV Q3H PRN Blood Pressure Hydralazine HCl 100 mg 03/15/21 08:00 Hydralazine 100 Mg Tab PO TID [facility] Hydromorphone HCl 0.5 mg 03/15/21 08:00 Hydromorphone 1 Mg/1 Ml Inj IV Q3H PRN Pain , Severe (7-10) Calcium Gluconate 2,000 mg/ 120 mls @ 660 mls/hr 03/15/21 09:00 Sodium Chloride IV 03/15/21 09:10 ONCE ONE Isosorbide Dinitrate mg 03/15/21 08:00 Isosorbide Dinitrate 20 Mg Tab PO Q8H [facility] Lisinopril 40 mg 03/15/21 10:00 Lisinopril 40 Mg Tab PO QDAY [facility] Metoclopramide HCl 10 mg 03/15/21 09:00 Metoclopramide 10 Mg/2 Ml Inj IV DAILY PRN Nausea And Vomiting Miscellaneous Medication 1 each 03/15/21 07:25 Oxycodone Hcl/Acetaminophen [Percocet 7.5/325 Mg] PO Q6HR PRN Pain , Severe (7-10) Nifedipine 60 mg 03/15/21 10:00 Nifedipine Xl 60 Mg Tab PO QDAY [facility] Ondansetron HCl 4 mg 03/15/21 05:40 03/15/21 08:15 Ondansetron 4 Mg/2 Ml Inj IV 4 mg Q8H PRN Administration Nausea And Vomiting Polyethylene Glycol 17 gm 03/15/21 08:30 Polyethylene Glycol 3350 17 Gm Powder PO QDAY PRN Constipation Sodium Chloride 10 ml 03/15/21 10:00 Sodium Chloride 0.9% 10 Ml Flush Syringe IV BID GERALD Sodium Chloride 10 ml 03/15/21 08:00 Sodium Chloride 0.9% 10 Ml Flush Syringe IV PRN PRN LINE FLUSH
[2021-03-15] MEDS ORDERED: CALCIUM GLUCONATE 2,000 MG in SODIUM CHLORIDE 0.9% 100 ML IV ONE (09:00)
[2021-03-15] MEDS ORDERED: METOCLOPRAMIDE 10 MG/2 ML INJ IV PRN (09:00)
--- NOTE | 2021-03-15 09:19 | Consultation ---
History of Present Illness - Reason for Consult end stage renal disease - History of Present Illness 35-year-old -[place] female with a strong history of noncompliance with dialysis treatments, with history of end-stage renal disease secondary to hypertension, presented to the emergency department with complaints of shortness of breath. Initial laboratory studies were also concerning for hyperkalemia and because of progressively worsening shortness of breath she was emergently dialyzed yesterday evening. She tolerated the dialysis treatment well. She is typically on a Monday outpatient hemodialysis schedule. She claims that her last dialysis treatment was on Monday. overall she was very uninterested in interacting during the examination this morning. She would answer questions very quickly and could not give significant details in regards to dialysis history otherwise. Past History Past Medical History: ESRD, hypertension Past Surgical History: Other (AV fistula placement) Social history: no significant social history Family history: no significant family history Medications and Allergies Allergies Allergy/AdvReac Type Severity Reaction Status Date / Time tramadol AdvReac Unknown Verified 03/15/21 05:39 Home Medications Medication Instructions Recorded Confirmed Last Taken Type Acetaminophen [Acetaminophen TAB] 1 tab PO Q4H PRN #15 tablet 11/11/19 03/15/21 03/11/21 Rx Aspirin [Aspirin BABY CHEW TAB] 81 mg PO QDAY #30 tab 11/11/19 03/15/21 03/11/21 Rx Isosorbide Dinitrate [Isordil] 2 tab PO Q8H #90 tablet 11/11/19 03/15/21 03/11/21 Rx NIFEdipine XL [Procardia Xl] 30 mg PO QDAY #30 tablet 11/11/19 03/15/21 03/11/21 Rx Oxycodone HCl/Acetaminophen 1 each PO Q6HR PRN #20 tablet 11/11/19 03/15/21 03/11/21 Rx [Percocet 7.5/325 mg] carvediloL [Coreg] 25 mg PO Q12H #60 tablet 11/11/19 03/15/21 03/11/21 Rx cloNIDine [Catapres] 0.3 mg PO Q8HR #90 tablet 11/11/19 03/15/21 03/11/21 Rx diphenhydrAMINE [Benadryl CAP] 50 mg PO Q8H PRN #15 capsule 02/03/15/21 03/11/21 Rx hydrALAZINE [Apresoline TAB] 3 tab PO Q8HR #270 tab 11/11/19 03/15/21 03/11/21 Rx lisinopriL [Zestril TAB] 40 mg PO QDAY #30 tablet 11/11/19 03/15/21 03/11/21 Rx polyethylene glycoL 3350 [Miralax 17 gm PO QDAY PRN #30 powd.pack 11/11/19 03/15/21 03/11/21 Rx 3350] Active Meds: Active Medications Acetaminophen (Acetaminophen 325 Mg Tab) 650 mg PO Q4H PRN PRN Reason: Pain MILD(1-3)/Fever >100.5/GONZALEZ Albuterol/Ipratropium (Ipratropium/Albuterol Sulfate 3 Ml Ampul.Neb) 1 ampul IH Q4HRT [facility] Last Admin: 03/15/21 08:29 Dose: 1 ampul Documented by: Aspirin (Aspirin 81 Mg Tab Chew) 81 mg PO QDAY [facility] Carvedilol (Carvedilol 25 Mg Tab) 25 mg PO Q12H [facility]ERALD Clonidine HCl (Clonidine 0.1 Mg Tab) 0.3 mg PO Q8HR [facility] Diphenhydramine HCl (Diphenhydramine 50 Mg Cap) 50 mg PO Q8H PRN PRN Reason: Itching Heparin Sodium (Porcine) (Heparin 5,000 Unit/1 Ml Vial) 5,000 unit SUB-Q Q12HR [facility]ER[facility] Hydralazine HCl (Hydralazine 20 Mg/1 Ml Inj) 20 mg IV ONCE GERALD Stop: 03/15/21 11:00 Hydralazine HCl (Hydralazine 20 Mg/1 Ml Inj) 10 mg IV Q3H PRN PRN Reason: Blood Pressure Hydralazine HCl (Hydralazine 100 Mg Tab) 100 mg PO TID GERALD Hydromorphone HCl (Hydromorphone 1 Mg/1 Ml Inj) 0.5 mg IV Q3H PRN PRN Reason: Pain , Severe (7-10) Isosorbide Dinitrate (Isosorbide Dinitrate 20 Mg Tab) 20 mg PO Q8H [facility] Lisinopril (Lisinopril 40 Mg Tab) 40 mg PO QDAY [facility]AL[facility] Metoclopramide HCl (Metoclopramide 10 Mg/2 Ml Inj) 10 mg IV DAILY PRN PRN Reason: Nausea And Vomiting Miscellaneous Medication (Oxycodone Hcl/Acetaminophen [Percocet 7.5/325 Mg]) 1 each PO Q6HR PRN PRN Reason: Pain , Severe (7-10) Nifedipine (Nifedipine Xl 60 Mg Tab) 60 mg PO Q12HR [facility]ER[facility] Ondansetron HCl (Ondansetron 4 Mg/2 Ml Inj) 4 mg IV Q8H PRN PRN Reason: Nausea And Vomiting Last Admin: 03/15/21 08:15 Dose: 4 mg Documented by: Polyethylene Glycol (Polyethylene Glycol 3350 17 Gm Powder) 17 gm PO QDAY PRN PRN Reason: Constipation Sodium Chloride (Sodium Chloride 0.9% 10 Ml Flush Syringe) 10 ml IV BID GERALD Sodium Chloride (Sodium Chloride 0.9% 10 Ml Flush Syringe) 10 ml IV PRN PRN PRN Reason: LINE FLUSH Review of Systems All systems: negative Constitutional: fatigue, weakness Exam - Vital Signs Vital signs: Vital Signs Temp Pulse Resp BP Pulse Ox 98.4 F 81 22 198/129 100 03/14/21 09:47 03/14/21 09:47 03/14/21 09:47 03/14/21 09:47 03/14/21 09:47 - General Appearance General appearance: appears stated age EENT: ATNC Neck: Present: neck supple Respiratory: Decreased Breath Sounds Heart: regular Gastrointestinal: Present: normal Neurologic: no focal deficit Musculoskeletal: Present: deferred Results - Lab Results 03/14/21 10:24 03/14/21 10:24 Most recent lab results Calcium 8.7 mg/dL (8.4-10.2) 03/14/21 10:24 Assessment and Plan - Patient Problems (1) ESRD needing dialysis Current Visit: Yes Status: Chronic Plan to address problem: we will place patient back on her Monday hemodialysis schedule. If patient remains stable then from nephrology standpoint post dialysis treatment today she can be discharged to follow up with her regular on air director at her outpatient dialysis facility. (2) Hypertensive chronic kidney disease with stage 5 chronic kidney disease or end stage renal disease Current Visit: Yes Status: Chronic Plan to address problem: monitor on current outpatient regimen. Anticipate continued improvement with adequate fluid removal during dialysis. (3) Pulmonary edema Current Visit: Yes Status: Acute Plan to address problem: patient did receive emergent hemodialysis yesterday for goal ultrafiltration of 3 L. We will plan to place patient on dialysis again today for further clearance and volume optimization. (4) Hyperkalemia Current Visit: Yes Status: Acute Plan to address problem: we will treat with dialysis. Please ensure the patient is on a low potassium diet. (5) Anemia Current Visit: Yes Status: Chronic Qualifiers: Anemia type: due to chronic kidney disease Plan to address problem: ANDREW therapy with hemodialysis.
[2021-03-15] MEDS: cloNIDine 0.1 MG TAB PO SCH ×3 (09:21→21:54)
[2021-03-15] MEDS: diphenhydrAMINE 50 MG CAP PO PRN ×2 (09:51→23:34)
[2021-03-15] MEDS: HYDROmorphone 1 MG/1 ML INJ IV PRN ×3 (09:52→20:27)
[2021-03-15] MEDS: HEPARIN 5,000 UNIT/1 ML VIAL SUB-Q SCH ×2 (10:00→22:43)
[2021-03-15] MEDS ORDERED: NIFEdipine XL 60 MG TAB PO SCH (10:00)
[2021-03-15] MEDS ORDERED: SODIUM CHLORIDE 0.9% 100 ML IV PRN (10:00)
[2021-03-15] MEDS ORDERED: NIFEdipine XL 30 MG TAB PO SCH (10:00)
[2021-03-15] MEDS: hydrALAZINE 100 MG TAB PO SCH ×3 (10:24→20:27)
[2021-03-15] MEDS: carvediloL 25 MG TAB PO SCH ×2 (12:25→20:28)
[2021-03-15] MEDS: ASPIRIN 81 MG TAB CHEW PO SCH (12:26)
[2021-03-15] MEDS: NIFEdipine XL 60 MG TAB PO SCH ×2 (12:27→22:43)
[2021-03-15] MEDS: ISOSORBIDE DINITRATE 20 MG TAB PO SCH ×3 (12:27→22:42)
[2021-03-15] MEDS: LISINOPRIL 40 MG TAB PO SCH (12:28)
[2021-03-15] MEDS ORDERED: oxyCODONE /ACETAMINOPHEN 5-325MG TAB PO PRN (14:16)
[2021-03-15 14:40] LABS: Albumin 4.4 g/dL (3.9-5); Calcium 8.8 mg/dL (8.4-10.2)
[2021-03-16] MEDS: HYDROmorphone 1 MG/1 ML INJ IV PRN ×2 (01:51→06:15)
[2021-03-16] MEDS: IPRATROPIUM/ALBUTEROL SULFATE 3 ML AMPUL.NEB IH SCH ×3 (04:03→08:22)
[2021-03-16] MEDS: cloNIDine 0.1 MG TAB PO SCH (05:57)
[2021-03-16] MEDS: ISOSORBIDE DINITRATE 20 MG TAB PO SCH (06:00)
[2021-03-16 07:57] VITALS: BP 133/69
--- NOTE | 2021-03-16 08:48 | Discharge Summary ---
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 Initial laboratory studies were also concerning for hyperkalemia and because of progressively worsening shortness of breath she was emergently dialyzed Monday evening after admission. She tolerated the dialysis treatment well. She is typically on a Monday outpatient hemodialysis schedule. The patient was admitted with diagnosis of ESRD in need of hemodialysis, pulmonary edema, hyperkalemia and accelerated hypertension. Patient received appropriate hemodialysis and blood pressure stabilized with home medications. Patient is felt to receive maximal hospital benefit and will be discharged home. Dedicated discharge time 35 minutes. Disposition: DC-01 TO HOME OR SELFCARE Final Discharge Diagnosis (Prints w/discharge instructions): ESRD, pulmonary edema, hyperkalemia, accelerated hypertension Core Measure Documentation - Palliative Care Palliative Care/ Comfort Measures: Not Applicable - Core Measures Any of the following diagnoses?: none Exam - Constitutional Vitals: Temp Pulse Resp BP Pulse Ox 97.7 F 63 16 133/69 96 03/16/21 07:45 03/16/21 08:22 03/16/21 08:22 03/16/21 07:45 03/16/21 08:32 General appearance: Present: no acute distress, well-nourished - EENT Eyes: Present: PERRL ENT: hearing intact, clear oral mucosa - Neck Neck: Present: supple, normal ROM - Respiratory Respiratory effort: normal Respiratory: bilateral: CTA - Cardiovascular Heart Sounds: Present: S1 & S2. Absent: rub, click - Extremities Extremities: pulses symmetrical, No edema Peripheral Pulses: within normal limits - Abdominal General gastrointestinal: Present: soft, non-tender, non-distended, normal bowel sounds Female genitourinary: Present: normal - Integumentary Integumentary: Present: clear, warm, dry - Musculoskeletal Musculoskeletal: gait normal, strength equal bilaterally - Psychiatric Psychiatric: appropriate mood/affect, intact judgment & insight - Neurologic Neurologic: CNII-XII intact, moves all extremities Plan Activity: advance as tolerated Weight Bearing Status: Weight Bear as Tolerated Diet: renal Follow up with: PRIMARY CARE, [Primary Care Provider] - 7 Days KETAN CUNNINGHAM DO [Staff Physician] - 7 Days Prescriptions: cloNIDine [Catapres] 0.3 mg PO Q8HR #90 tablet carvediloL [Coreg] 25 mg PO Q12H #60 tablet Isosorbide Dinitrate [Isordil] 2 tab PO Q8H #90 tablet NIFEdipine XL [Procardia Xl] 60 mg PO Q12HR #60 tablet lisinopriL [Zestril TAB] 40 mg PO QDAY #30 tablet
[2021-03-16] MEDS: hydrALAZINE 100 MG TAB PO SCH (08:59)
[2021-03-16] MEDS ORDERED: ALBUTEROL 2.5 MG/3 ML NEBU IH PRN (09:00)
[2021-03-16] MEDS: carvediloL 25 MG TAB PO SCH (09:00)
[2021-03-16] MEDS: ASPIRIN 81 MG TAB CHEW PO SCH (10:10)
[2021-03-16] MEDS: LISINOPRIL 40 MG TAB PO SCH (10:15)
[2021-03-16] MEDS: NIFEdipine XL 60 MG TAB PO SCH (10:15)
--- NOTE | 2021-03-16 10:27 | Progress Note ---
Assessment and Plan - Patient Problems (1) ESRD needing dialysis Current Visit: Yes Status: Chronic Plan to address problem: we will place patient back on her Monday hemodialysis schedule. from a nephrology standpoint patient is stable for discharge. (2) Hypertensive chronic kidney disease with stage 5 chronic kidney disease or end stage renal disease Current Visit: Yes Status: Chronic Plan to address problem: monitor on current outpatient regimen. Anticipate continued improvement with adequate fluid removal during dialysis. overall blood pressure control is stable this morning. (3) Pulmonary edema Current Visit: Yes Status: Acute Plan to address problem: patient did receive emergent hemodialysis yesterday for goal ultrafiltration of 3 L. overall volume status has improved since admission. (4) Hyperkalemia Current Visit: Yes Status: Acute Plan to address problem: we will treat with dialysis. Please ensure the patient is on a low potassium diet. (5) Anemia Current Visit: Yes Status: Chronic Qualifiers: Anemia type: due to chronic kidney disease Plan to address problem: ANDREW therapy with hemodialysis. Subjective Date of service: 03/16/21 Interval history: no acute events. She refused more than an hour of treatment on dialysis yest liz. She has to be stopped 1 hour into the treatment. Per nursing staff she has also been noncompliant with other treatment regimens here in the hospital. Objective - Vital Signs Vital signs: Vital Signs - 12hr 03/15/21 03/15/21 03/16/21 22:42 23:19 03:38 Temperature 97.9 F 97.9 F Pulse Rate 65 66 61 Pulse Rate [ Anterior Bilateral Throughout] Pulse Rate [ Posterior Bilateral] Respiratory 16 18 Rate Respiratory Rate [Anterior Bilateral Throughout] Respiratory Rate [Posterior Bilateral] Blood Pressure 122/61 143/85 152/86 O2 Sat by Pulse 100 95 Oximetry 03/16/21 03/16/21 03/16/21 04:00 05:57 06:00 Temperature Pulse Rate 82 78 Pulse Rate [ Anterior Bilateral Throughout] Pulse Rate [ 82 Posterior Bilateral] Respiratory Rate Respiratory Rate [Anterior Bilateral Throughout] Respiratory 18 Rate [Posterior Bilateral] Blood Pressure 152/86 O2 Sat by Pulse Oximetry 03/16/21 03/16/21 03/16/21 07:45 08:21 08:22 Temperature 97.7 F Pulse Rate 60 Pulse Rate [ 63 Anterior Bilateral Throughout] Pulse Rate [ Posterior Bilateral] Respiratory 18 Rate Respiratory 16 Rate [Anterior Bilateral Throughout] Respiratory Rate [Posterior Bilateral] Blood Pressure 133/69 O2 Sat by Pulse 97 96 Oximetry 03/16/21 03/16/21 08:32 09:00 Temperature Pulse Rate 86 Pulse Rate [ Anterior Bilateral Throughout] Pulse Rate [ Posterior Bilateral] Respiratory Rate Respiratory Rate [Anterior Bilateral Throughout] Respiratory Rate [Posterior Bilateral] Blood Pressure O2 Sat by Pulse 96 Oximetry - General Appearance General appearance: well-developed, appears stated age EENT: ATNC Neck: no JVD Respiratory: Present: Clear to Ascultation Cardiology: regular Gastrointestinal: normal Integumentary: no rash Neurologic: no focal deficit Musculoskeletal: deferred - Lab 03/14/21 10:24 03/15/21 07:28 Most recent lab results Calcium 8.8 mg/dL (8.4-10.2) 03/15/21 07:28 - Allied health notes Allied health notes reviewed: nursing Medications & Allergies - Medications Allergies/Adverse Reactions: Allergies tramadol Adverse Reaction (Verified 03/15/21 05:39) Unknown Home Medications: Home Medications Medication Instructions Recorded Confirmed Last Taken Type Acetaminophen [Acetaminophen TAB] 1 tab PO Q4H PRN #15 tablet 11/11/19 03/15/21 03/11/21 Rx Aspirin [Aspirin BABY CHEW TAB] 81 mg PO QDAY #30 tab 11/11/19 03/15/21 03/11/21 Rx Oxycodone HCl/Acetaminophen 1 each PO Q6HR PRN #20 tablet 11/11/19 03/15/21 03/11/21 Rx [Percocet 7.5/325 mg] diphenhydrAMINE [Benadryl CAP] 50 mg PO Q8H PRN #15 capsule 11/11/19 03/15/21 03/11/21 Rx polyethylene glycoL 3350 [Miralax 17 gm PO QDAY PRN #30 powd.pack 11/11/19 03/15/21 03/11/21 Rx 3350] Isosorbide Dinitrate [Isordil] 2 tab PO Q8H #90 tablet 03/16/21 Unknown Rx NIFEdipine XL [Procardia Xl] 60 mg PO Q12HR #60 tablet 03/16/21 Unknown Rx carvediloL [Coreg] 25 mg PO Q12H #60 tablet 03/16/21 Unknown Rx cloNIDine [Catapres] 0.3 mg PO Q8HR #90 tablet 03/16/21 Unknown Rx lisinopriL [Zestril TAB] 40 mg PO QDAY #30 tablet 03/16/21 Unknown Rx Active Medications: Generic Name Dose Route Start Last Admin Trade Name Freq PRN Reason Stop Dose Admin Acetaminophen 650 mg 03/15/21 08:00 03/15/21 12:30 Acetaminophen 325 Mg Tab PO 650 mg Q4H PRN Administration Pain MILD(1-3)/Fever >100.5/GONZALEZ Albuterol 2.5 mg 03/16/21 09:00 Albuterol 2.5 Mg/3 Ml Nebu IH Q4HRT PRN Shortness Of Breath Albuterol/Ipratropium 1 ampul 03/16/21 14:00 Ipratropium/Albuterol Sulfate 3 Ml Ampul.Neb IH TIDRT GERALD Aspirin 81 mg 03/15/21 10:00 03/15/21 12:26 Aspirin 81 Mg Tab Chew PO 81 mg QDAY GERALD Administration Carvedilol 25 mg 03/15/21 08:00 03/16/21 09:00 Carvedilol 25 Mg Tab PO 25 mg Q12H GERALD Administration Clonidine HCl 0.3 mg 03/15/21 09:00 03/16/21 05:57 Clonidine 0.1 Mg Tab PO 0.3 mg Q8HR GERALD Administration Diphenhydramine HCl 50 mg 03/15/21 08:00 03/15/21 23:34 Diphenhydramine 50 Mg Cap PO 50 mg Q8H PRN Administration Itching Heparin Sodium (Porcine) 5,000 unit 03/15/21 10:00 03/15/21 22:43 Heparin 5,000 Unit/1 Ml Vial SUB-Q Not Given Q12HR GERALD Hydralazine HCl 10 mg 03/15/21 08:00 03/15/21 11:23 Hydralazine 20 Mg/1 Ml Inj IV 10 mg Q3H PRN Administration SBP >/=160; DBP >/=100 Hydralazine HCl 100 mg 03/15/21 08:00 03/16/21 08:59 Hydralazine 100 Mg Tab PO 100 mg TID GERALD Administration Hydromorphone HCl 0.5 mg 03/15/21 08:00 03/16/21 06:15 Hydromorphone 1 Mg/1 Ml Inj IV 0.5 mg Q3H PRN Administration Pain , Severe (7-10) Sodium Chloride 100 mls @ 999 mls/hr 03/15/21 10:00 Nacl 0.9% IV TIFFANY PRN Hypotension Isosorbide Dinitrate 20 mg 03/15/21 11:00 03/16/21 06:00 Isosorbide Dinitrate 20 Mg Tab PO Not Given Q8HR [facility] Lisinopril 40 mg 03/15/21 10:00 03/15/21 12:28 Lisinopril 40 Mg Tab PO Not Given QDAY [facility] Metoclopramide HCl 10 mg 03/15/21 09:00 Metoclopramide 10 Mg/2 Ml Inj IV DAILY PRN Nausea And Vomiting Nifedipine 60 mg 03/15/21 10:00 03/15/21 22:43 Nifedipine Xl 60 Mg Tab PO Not Given Q12HR [facility] Ondansetron HCl 4 mg 03/15/21 05:40 03/15/21 08:15 Ondansetron 4 Mg/2 Ml Inj IV 4 mg Q8H PRN Administration Nausea And Vomiting Oxycodone/Acetaminophen 1 tab 03/15/21 14:16 Oxycodone /Acetaminophen 5-325mg Tab PO Q6H PRN Pain , Severe (7-10) Polyethylene Glycol 17 gm 03/15/21 08:30 Polyethylene Glycol 3350 17 Gm Powder PO QDAY PRN Constipation Sodium Chloride 10 ml 03/15/21 10:00 03/15/21 21:55 Sodium Chloride 0.9% 10 Ml Flush Syringe IV 10 ml BID GERALD Administration Sodium Chloride 10 ml 03/15/21 08:00 Sodium Chloride 0.9% 10 Ml Flush Syringe IV PRN PRN LINE FLUSH
[2021-03-16] MEDS: HEPARIN 5,000 UNIT/1 ML VIAL SUB-Q SCH (10:50)
[2021-03-16] MEDS ORDERED: IPRATROPIUM/ALBUTEROL SULFATE 3 ML AMPUL.NEB IH SCH (14:00)
--- NOTE | 2021-03-17 19:03 | Electrocardiograph Report ---
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
--- NOTE | 2021-03-18 09:40 | Electrocardiograph Report ---
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
== END 2021-03-16 11:15 | disposition home or self-care (01) | DRG 291 ==
LOC: ED 09:29 → 4A 22:35
PROVIDERS: ADMIT Internal Medicine; ATTEND Hospitalist
PROC: 5A1D70Z Performance of Urinary Filtration, Intermittent, Less than 6 Hours Per Day (ICD-10-PCS; principal; 2021-03-14)
PROC: 5A1D70Z Performance of Urinary Filtration, Intermittent, Less than 6 Hours Per Day (ICD-10-PCS; 2021-03-15)
DX: I13.2 Hypertensive heart and chronic kidney disease with heart failure and with stage 5 chronic kidney disease, or end stage renal disease (principal); N18.6 End stage renal disease; I16.1 Hypertensive emergency; J81.1 Chronic pulmonary edema; Z20.822 Contact with and (suspected) exposure to COVID-19; I50.9 Heart failure, unspecified; D63.8 Anemia in other chronic diseases classified elsewhere; E87.1 Hypo-osmolality and hyponatremia; E78.5 Hyperlipidemia, unspecified; E87.5 Hyperkalemia; Z88.6 Allergy status to analgesic agent; Z79.899 Other long term (current) drug therapy; Z79.82 Long term (current) use of aspirin; Z99.2 Dependence on renal dialysis
CPT/HCPCS: 36415; 71046; 80053; 80074; 83036; 83880; 84484; 85025; 85610; 85730; 93005; 94640; 96374; 96375; 96376; G0378; J0360; J0610; J1170; J1940; J2270; J2405